=== PATIENT | female | born 1990 | race Caucasian/White ===

== ENCOUNTER → 2018-06-02 13:51 | Outpatient (CLI) | payer MEDICAID, OTHER, SELFPAY | PROVIDERS: Visit Provider Physician Assistant | DX: J02.9 Acute pharyngitis, unspecified (principal) | CPT/HCPCS: 87070 ==

== ENCOUNTER → 2018-08-03 13:22 | Outpatient (CLI) | payer OTHER, MEDICAID, SELFPAY ==
[2018-08-03 13:56] LABS: Alanine Aminotransferase 21 IU/L (9-52); Albumin 4.7 g/dL (3.5-5.0); Albumin Globulin Ratio 1.6 (1.0-2.8); Alkaline Phosphatase 42 U/L (38-126); Aspartate Aminotransferase 22 IU/L (14-36); Bilirubin Total 0.9 mg/dL (0.2-1.3); Bilirubin Unconjugated 0.8 mg/dL (0.0-1.1); HEMOLYSIS < 15 (0-50); Total Protein 7.7 g/dL (6.3-8.2)
[2018-08-03 16:45] LABS: HIV 1 and 2 Antibody NEGATIVE (NEGATIVE)
[2018-08-03 20:40] LABS: Urine N gonorrhoeae NOT DETECTED
[2018-08-03 20:50] LABS: Urine Chlamydia NOT DETECTED
[2018-08-07 20:31] LABS: Rapid Plasma Reagin NON-REACTIVE
== END ==
PROVIDERS: Visit Provider Physician Assistant
DX: A64 Unspecified sexually transmitted disease (principal)
CPT/HCPCS: 36415; 80076; 86592; 86703; 87491; 87591

== ENCOUNTER → 2018-09-14 15:02 | Outpatient (CLI) | payer OTHER, MEDICAID, SELFPAY | PROVIDERS: Visit Provider Physician Assistant | DX: J02.9 Acute pharyngitis, unspecified (principal) | CPT/HCPCS: 87070 ==

== ENCOUNTER → 2018-09-18 17:50 | Outpatient (CLI) | payer OTHER, MEDICAID, SELFPAY ==
[2018-09-23 10:49] LABS: C.trachomatis RNA NOT DETECTED
[2018-09-23 10:50] LABS: N.gonorrhoeae RNA NOT DETECTED
== END ==
PROVIDERS: Visit Provider Family Medicine
DX: Z11.3 Encounter for screening for infections with a predominantly sexual mode of transmission (principal)
CPT/HCPCS: 87491; 87591

== ENCOUNTER → 2018-12-04 11:28 | Outpatient (CLI) | payer OTHER, MEDICAID, SELFPAY ==
[2018-12-04 12:53] LABS: Add Manual Diff / Slide Review NO; Basophils Absolute Auto 0 /uL (0-100); Basophils Percent Auto 0.5 % (0-2); Eosinophils Absolute Auto 100 /uL (0-450); Eosinophils Percent Auto 1.1 % (2-4); Hematocrit 40.4 % (36-46); Hemoglobin 13.4 g/dL (12.0-16.0); Lymphocytes Absolute Auto 1400 /uL (1100-4500); Mean Corpuscular HGB Conc 33.1 % (30-36); Mean Corpuscular Hemoglobin 31.7 PG (26-34); Mean Corpuscular Volume 95.8 fL (80-100); Monocytes Absolute Auto 400 /uL (0-900); Monocytes Percent Auto 5.2 % (3-14); Neutrophils Absolute Auto 5000 /uL (1500-7000); Neutrophils Percent Auto 73.2 % (50-75); Platelet Count 197 X10^3/uL (150-400); Red Blood Cell Count 4.22 X10^6/uL (4.0-5.2); Red Cell Distribution Width 13.8 % (11.6-14.8); White Blood Cell Count 6.8 X10^3/uL (4.5-11.0)
[2018-12-04 13:32] LABS: Alanine Aminotransferase 23 IU/L (9-52); Albumin 4.4 g/dL (3.5-5.0); Albumin Globulin Ratio 1.5 (1.0-2.8); Alkaline Phosphatase 40 U/L (38-126); Aspartate Aminotransferase 19 IU/L (14-36); Bilirubin Total 0.7 mg/dL (0.2-1.3); Blood Urea Nitrogen 14 mg/dL (7-17); Calcium 9.2 mg/dL (8.4-10.2); Carbon Dioxide 26 mmol/L (22-32); Chloride 106 mmol/L (98-107); Cholesterol 133 mg/dL (140-199); Estimated Glomerular Filt Rate > 60.0 mL/min (>60); Glucose 64 mg/dL (70-100); HDL Cholesterol 45 mg/dL (40-60); HEMOLYSIS < 15 (0-50); LDL Cholesterol Calculated 69 mg/dL (<100); Potassium 4.1 mmol/L (3.4-5.1); Sodium 142 mmol/L (137-145); Total Protein 7.4 g/dL (6.3-8.2); Triglycerides 97 mg/dL (35-150)
[2018-12-04 13:42] LABS: Free T3, Triiodothyronine Free 2.85 pg/mL (2.77-5.27); Free T4, Direct Thyroxine 1.37 ng/dL (0.78-2.19)
[2018-12-04 13:55] LABS: Thyroid Stimulating Hormone 0.24 uIU/mL (0.47-4.68)
== END ==
PROVIDERS: Visit Provider Family Medicine
DX: E03.9 Hypothyroidism, unspecified (principal); Z51.81 Encounter for therapeutic drug level monitoring; Z13.220 Encounter for screening for lipoid disorders
CPT/HCPCS: 36415; 80053; 80061; 84439; 84443; 84481; 85025

== ENCOUNTER → 2019-01-05 16:49 | Outpatient (CLI) | payer OTHER, MEDICAID, SELFPAY | PROVIDERS: Visit Provider Family Medicine | DX: N89.8 Other specified noninflammatory disorders of vagina (principal) | CPT/HCPCS: 87070; 87205; 87491; 87591 ==

== ENCOUNTER → 2019-01-07 12:41 | Outpatient (CLI) | payer OTHER, MEDICAID, SELFPAY | PROVIDERS: Visit Provider Physician Assistant | DX: J02.9 Acute pharyngitis, unspecified (principal) | CPT/HCPCS: 87070 ==

== ENCOUNTER → 2019-03-09 12:19 | Outpatient (CLI) | payer OTHER, MEDICAID, SELFPAY ==
[2019-03-09 13:59] LABS: Thyroid Stimulating Hormone 2.08 uIU/mL (0.47-4.68)
== END ==
PROVIDERS: PCP Family Medicine; Visit Provider Physician Assistant
DX: E03.9 Hypothyroidism, unspecified (principal)
CPT/HCPCS: 36415; 84443

== ENCOUNTER → 2019-06-22 12:14 | Outpatient (CLI) | payer OTHER, MEDICAID, SELFPAY ==
[2019-06-22 13:34] LABS: Free T3, Triiodothyronine Free 3.36 pg/mL (2.77-5.27)
[2019-06-22 13:47] LABS: Thyroid Stimulating Hormone 3.19 uIU/mL (0.47-4.68)
== END ==
PROVIDERS: PCP Family Medicine; Visit Provider Family Medicine
DX: E03.9 Hypothyroidism, unspecified (principal)
CPT/HCPCS: 36415; 84439; 84443; 84481

== ENCOUNTER → 2019-08-05 06:56 | Outpatient (CLI) | payer OTHER, MEDICAID, SELFPAY ==
--- NOTE | 2019-08-05 06:58 | DI.ECHO.S_ITS ---
[facility]---------+ [facility] +---------+ : : [address] [place] : : : : [id number] : : : : Phone: [phone]+ Echocardiogram Report + + :Name: RONNI BUCHANAN Study Date: 08/05/2019 Height: 64 in : :[facility] Weight: 135 lb: : Gender: Female BSA: 1.7 m2 : :: 1990 Age: 28 yrs BP: 94/60 mmHg: :Reason For Study: Mitral Valve- Prolapse, palpitations : :Ordering Physician: Ora Salvador Performed By: Akua Witt : :Referring: ORA SALVADOR : + + Interpretation Summary 1) Normal left ventricular size, thickness, wall motion, and systolic function (EF 60-65%). 2) Normal right ventricular size and function. 3) No valvular abnormalities present. 4) No prior Echo available for comparison. Procedure: A two-dimensional transthoracic echocardiogram with color flow and Doppler was performed. The study quality was technically good. There is no prior echocardiogram noted for this patient. The patient was in normal sinus rhythm during the exam. Left Ventricle: The left ventricle is normal in size, wall thickness, and systolic function without any focal wall motion abnormalities. There is no ventricular septal defect visualized. A false chord is noted (normal variant). The ejection fraction is estimated to be 60-65%. Diastolic parameters suggest probable normal left ventricular diastolic function and normal filling pressures. Right Ventricle: The right ventricle is normal in size and function. Atria: The left atrium is mildly dilated. Right atrial size is normal. There is no Doppler evidence for an interatrial shunt. Mitral Valve: The mitral valve is normal in structure and function. There is no evidence of mitral valve prolapse. There is no mitral regurgitation noted. Aortic Valve: The aortic valve is normal in structure and function. No aortic regurgitation is present. Tricuspid Valve: The tricuspid valve is normal in structure and function. There is trace tricuspid regurgitation. The right ventricular systolic pressure is estimated to be at least 26 mmHg based on an estimated right atrial pressure of 8 mm Hg. Pulmonic Valve: The pulmonic valve is normal in structure and function. There is a trace or physiologic amount of pulmonic regurgitation. Great Vessels: The aortic root is normal size. The ascending aorta is normal in size. The aortic arch is normal in size. The pulmonary artery is normal size. The IVC is dilated (diameter is greater than 2.1 cm) yet it collapses greater than 50% with a sniff. This suggests a right atrial pressure of 8 mm Hg. Pericardium/ Pleura There is no pericardial effusion. MMode/2D Measurements & Calculations LVIDd: 4.9 cm LVOT diam: 2.2 cm LVIDs: 3.1 cm Ao root diam: 3.1 cm FS: 36.0 % asc Aorta Diam: 2.7 cm EPSS: 0.30 cm Ao Arch Diam (Prox Trans): 2.5 cm IVSd: 0.63 cm LVPWd: 0.73 cm LV cheung. diameter/BSA (cm/m^2): 3.0 LV sys. diameter/BSA (cm/m^2): 1.9 LA A2 area: 18.1 cm2 RA long axis: 4.2 cm LA A4 area: 19.0 cm2 RA area: 13.4 cm2 LA length (vol): 5.1 cm RA vol: 36.1 ml LA vol: 57.1 ml RA : 21.8 ml/m2 LA vol index: 34.5 ml/m2 IVC diam: 2.2 cm RVD1 (basal): 3.3 cm RVD2 (mid): 2.5 cm TAPSE: 2.4 cm Doppler Measurements & Calculations Ao V2 max: 114.4 cm/sec LVOT Max Kory: 96.3 cm/sec Ao V2 mean: 85.1 cm/sec LV V1 max P.7 mmHg Ao max P.2 mmHg LV V1 VTI: 21.6 cm Ao mean P.1 mmHg BRISEIDA(I,D): 3.1 cm2 Ao V2 VTI: 26.4 cm BRISEIDA(V,D): 3.2 cm2 sev ratio: 0.82 BRISEIDA indexed to BSA (cm^2/m^2): 1.9 MV E max kory: 78.8 cm/sec TR max kory: 209.0 cm/sec MV A max kory: 39.8 cm/sec TR max P.5 mmHg MV E/A: 2.0 PA V2 max: 88.4 cm/sec Med Peak E' Kory: 14.2 cm/sec PA V2 mean: 57.1 cm/sec E/E' med: 5.6 PA mean P.5 mmHg Lat Peak E' Kory: 17.4 cm/sec PA Accel Time: 0.17 sec E/E' lat: 4.5 E/e' average: 5.0 MV dec time: 0.19 sec MV P1/2t: 55.7 msec MV P1/2t max kory: 78.9 cm/sec SV(LVOT): 81.8 ml MVA(P1/2t): 4.0 cm2 Reading Physician:05:24 PM
== END ==
PROVIDERS: PCP Family Medicine; Visit Provider Family Medicine
DX: I34.1 Nonrheumatic mitral (valve) prolapse (principal); R00.2 Palpitations
CPT/HCPCS: 93306

== ENCOUNTER → 2019-08-11 11:39 | Outpatient (CLI) | payer OTHER, MEDICAID, SELFPAY ==
[2019-08-11 13:05] LABS: Cholesterol 163 mg/dL (140-199); HDL Cholesterol 62 mg/dL (40-60); LDL Cholesterol Calculated 78 mg/dL (<100); Triglycerides 117 mg/dL (35-150)
== END ==
PROVIDERS: PCP Family Medicine; Visit Provider Internal Medicine Cardiovascular Disease
DX: Z00.00 Encounter for general adult medical examination without abnormal findings (principal)
CPT/HCPCS: 36415; 80061

== ENCOUNTER 2020-02-12 19:48 | Emergency (ER) | payer OTHER, MEDICAID, SELFPAY ==
[2020-02-12 19:50] VITALS: BP 133/72; PULSE 90; RESP 18; TEMP 36.6; O2SAT 100
--- NOTE | 2020-02-12 20:17 | DI.RAD.S_ITS ---
PROCEDURE: XR CHEST 2V INDICATIONS: rib pain, coughing for 4 weeks TECHNIQUE: 2 views of the chest were acquired. COMPARISON: None. FINDINGS: Surgical changes and devices: None. Lungs and pleura: Lungs are clear. No pleural effusions or pneumothorax. Mediastinum: Mediastinal contours are normal. Heart size is normal. Bones and chest wall: No suspicious bony abnormalities. Soft tissues appear unremarkable. IMPRESSION: No acute cardiopulmonary disease process. Dictated by: Sallie Salas MD, PhD on 02/12/2020 at 20:43 Approved by: Sallie Salas MD, PhD on 02/12/2020 at 20:44
[2020-02-12] MEDS: ACETAMINOPHEN 325 MG TABLET 650 MG PO (20:29)
[2020-02-12] MEDS: IBUPROFEN 400 MG TABLET PO (20:31)
--- NOTE | 2020-02-12 21:20 | ED_ITS ---
HPI - URI/Sore Throat <TRAVIS PonceP - Last Filed: 02/12/20 21:33> General Chief Complaint: Upper Respiratory Symptoms Stated Complaint: coughing x4 wks, ribs/ chest pain Time Seen by Provider: 02/12/20 19:56 Source: patient Mode of arrival: Ambulatory Limitations: no limitations History of Present Illness HPI Narrative: This is a 29-year-old female, nonsmoker, who presents to ED with mid chest/rib pain radiating to left lower and side ribs. Patient reports she has been coughing for last 4 weeks. She denies fever but subjective chills. Patient reports it use to be nonproductive dry cough but now especially in the morning she has productive cough with greenish mucus. Patient denies dyspnea, rash, nausea or vomiting. Patient reports pain worse with certain movements of of her arms and bending forward. Patient denies diarrhea, sore throat, facial sinus pain. Patient has history of hypothyroidism otherwise she is healthy. Patient denies known exposure to people with cardona virus, recent travel. Patient reports questionable history of mitral valve prolapse which has been cleared by echocardiogram in 2019. Related Data Previous Rx's Medication Instructions Recorded levothyroxine 75 mcg tablet 75 mcg PO DAILY #90 tab 10/21/19 benzonatate [Tessalon Perles] 100 mg PO BID-TID PRN #10 cap 02/12/20 prednisone 20 mg PO DAILY 5 Days #5 tab 02/12/20 Allergies Allergy/AdvReac Type Severity Reaction Status Date / Time cefaclor [From [facility]] Allergy Unknown Verified 02/12/20 20:07 Review of Systems <JAMILA Ponce - Last Filed: 02/12/20 21:33> Review of Systems Narrative: General: Denies fever, (+) chills, fatigue, malaise, sweats. HEENT: Denies sinus pain, ear pain, sore throat, difficulty swallowing, dizziness. Respiratory: Denies dyspnea, (+) cough, wheezing, hemoptysis, sputum. Cardiovascular: Denies (+) mid chest and rib pain, palpitations, orthopnea, edema, calf pain. Gastrointestinal: Denies nausea, vomiting, abdominal pain, diarrhea, constipation, melena. : Denies dysuria, frequency, incontinence, hematuria, urinary retention. Musculoskeletal: Denies weakness, joint pain or bony pain. Skin: Denies rash, skin lesions, or other. Neurologic: Denies weakness, headache, numbness, change in speech, confusion, seizures, incoordination. Psychiatric: No concerning psychosocial issues. 12-point review of systems is negative except for those stated above. Patient History <JAMILA Ponce - Last Filed: 02/12/20 21:33> Family History Father No problems noted. Mother No problems noted. Sister No problems noted. Sister No problems noted. Social History Smoking Status: Never smoker quit status: not considering quitting second hand exposure: Yes alcohol intake: current substance use type: marijuana Smoking Status: Never smoker alcohol intake frequency: 0-2 drinks per day Substance Use Type: marijuana Exam <TRAVIS PonceP - Last Filed: 02/12/20 21:33> Narrative Exam Narrative: GEN: Alert, oriented x 3, well appearing and nourished, and in no acute distress. Head: Normal cephalic, atraumatic. No scalp or temporal tenderness, palpable mass or rash. EYES: Pupils are equal, round, and reactive to light and accommodation. Extraocular muscles are intact bilaterally. There is no subconjunctival hemorrhage, exudate and sclera non-icteric. ENT: Bilateral auditory canals and tympanic membranes clear. Hearing grossly intact. Nose without bleeding, purulent discharge or deviation. Facial sinuses nontender to palpate. Mucous membrane moist, no mucosal lesion. Throat without erythema, tonsillar hypertrophy or exudate. Uvula in midline, airway patent. Neck: Trachea in midline. No JVD, non-tender without lymphadenopathy. No masses or thyroid megaly. Supple, non-tender and no meningeal signs. CARDIAC: Normal regular rate and rhythm without murmurs, gallops, or rubs. No chest wall tenderness. No peripheral edema, cyanosis or pallor. Capillary refill is less than 2 seconds. RESPIRATORY: Lungs are clear to auscultate bilaterally. Occasional cough without wheezes, rales, or rhonchi. No stridor, respiratory distress, increase work of breathing, or accessary muscle used. ABD: Abdomen soft, nontender and non-distended. No guarding or rebound tenderness to palpate. Bowel sounds are normal in all 4 quadrants. There is no palpable masses or organomegaly. EXT: Full painless ROM of all extremities with no loss of sensation, strength, effusion or edema. SKIN: Warm, dry, normal color for patient. No erythema, lesions or rash over visible areas. BACK: Nontender without deformity or crepitance. No flank tenderness. NEUROLOGICAL: Alert and oriented to place, time and person. Sensation and motor function intact bilaterally. No facial droops, dysphasia. PSYCHIATRIC: Good judgement and reason, without hallucinations, abnormal affect or abnormal behaviors during the examination. Initial Vital Signs Initial Vital Signs: Vital Signs Temperature 97.9 F 02/12/20 19:50 Pulse Rate 90 02/12/20 19:50 Respiratory Rate 18 02/12/20 19:50 Blood Pressure 133/72 02/12/20 19:50 Pulse Oximetry 100 02/12/20 19:50 <Mehdi Carballo DO - Last Filed: 02/12/20 23:27> Initial Vital Signs Initial Vital Signs: Vital Signs Temperature 97.9 F 02/12/20 19:50 Pulse Rate 90 02/12/20 19:50 Respiratory Rate 18 02/12/20 19:50 Blood Pressure 133/72 02/12/20 19:50 Pulse Oximetry 100 02/12/20 19:50 Scores <JAMILA Ponce - Last Filed: 02/12/20 21:33> GCS Kat coma scale eye opening: Spontaneous [place] coma scale verbal response: Orientated [place] coma scale motor response: Obey commands Kat coma scale total score: 15 Course <JAMILA Ponce - Last Filed: 02/12/20 21:33> Orders Ordered: ED Orders 02/12/20 20:17 XR chest 2V Stat Discontinued Medications Acetaminophen (Tylenol) 650 mg PO NOW ONE Stop: 02/12/20 20:18 Last Admin: 02/12/20 20:29 Dose: 650 mg Documented by: IVY Ibuprofen (Advil) 400 mg PO NOW ONE Stop: 02/12/20 20:18 Last Admin: 02/12/20 20:31 Dose: 400 mg Documented by: IVY Vital Signs Vital signs: Vital Signs - 8 hr 02/12/20 19:50 02/12/20 21:34 Temperature 97.9 F Pulse Rate 90 88 Respiratory Rate 18 12 Blood Pressure 133/72 132/86 Pulse Oximetry 100 100 <[address] Last Filed: 02/12/20 23:27> Orders Ordered: ED Orders 02/12/20 20:17 XR chest 2V Stat Discontinued Medications Acetaminophen (Tylenol) 650 mg PO NOW ONE Stop: 02/12/20 20:18 Last Admin: 02/12/20 20:29 Dose: 650 mg Documented by: IVY Ibuprofen (Advil) 400 mg PO NOW ONE Stop: 02/12/20 20:18 Last Admin: 02/12/20 20:31 Dose: 400 mg Documented by: IVY Vital Signs Vital signs: Vital Signs - 8 hr 02/12/20 19:50 02/12/20 21:34 Temperature 97.9 F Pulse Rate 90 88 Respiratory Rate 18 12 Blood Pressure 133/72 132/86 Pulse Oximetry 100 100 MDM - URI/Sore Throat <JAMILA Ponce - Last Filed: 02/12/20 21:33> Differential Diagnosis Differential diagnosis: Likely upper respiratory infection, bronchitis and other (Costal chondritis, pneumonia) Medical Records Attestation: I reviewed the patient's medical records. Imaging Data Chest x-ray: My Impression: Jo-Ann Tobar 29 F 1990 [place] [address] XRay Report Signed Patient: Jo-Ann Tobar DMR#: [id number] : 1990Acct:[id number] Age/Sex: 29 FDate of Service: 02/12/20 Loc: ED Accession Number: [id number] Procedure: XR chest 2V Ordering Provider: Jeremy Enriquez PROCEDURE: XR CHEST 2V INDICATIONS: rib pain, coughing for 4 weeks TECHNIQUE: 2 views of the chest were acquired. COMPARISON: None. FINDINGS: Surgical changes and devices: None. Lungs and pleura: Lungs are clear. No pleural effusions or pneumothorax. Mediastinum: Mediastinal contours are normal. Heart size is normal. Bones and chest wall: No suspicious bony abnormalities. Soft tissues appear unremarkable. IMPRESSION: No acute cardiopulmonary disease process. Dictated by: Sallie Salas MD, PhD on 02/12/2020 at 20:43 Approved by: Sallie Salas MD, PhD on 02/12/2020 at 20:44 MDM Narrative Medical decision making narrative: This is a 29-year-old female who presents to ED with 4 week duration of nonproductive cough which changed to productive coughs in the morning recently with mid chest discomfort radiating to left lower and lateral ribs which increases with movement and bending forward. Patient's lung sounds are clear to auscultate in all lobes. Patient's vital signs stable with 100% O2 sat in room air. Patient has been taking allergy medications daily. Chest x-ray obtained which does not indicate acute findings such as pneumonia, pleural effusion, rib fractures or dislocation, or pneumothorax. Patient was medicated with Tylenol and Motrin while in ED for discomfort. Considered pericarditis but patient does not have constitutional symptoms with movement of upper arms and bending forward. It is likely patient has costal chondritis with frequent coughing with [id number] Tylenol and or Motrin. Tessalon per has been ordered for coughing symptoms and prednisone to decrease inflammation and bronchitis. Return precautions were discussed with the patient and patient verbalized understanding and in agreement with treatment plan. Discharge Plan Departure Patient Disposition: Home Clinical Impression: Bronchitis, Costal chondritis Discharge Date/Time: 02/12/20 21:34 Instructions: DI for Acute Bronchitis, DI for Costochondritis Activity Restrictions/Additional Instructions: You have been diagnosed with [bronchitis and costal chondritis. Your medicated with Tylenol and Motrin while in ED for discomfort. Chest x-ray does not show acute findings such as pneumonia, pleural effusion or pneumothorax. You have no fever with stable vital signs and clear lung sounds.]. What to do: *Take your medications as directed. Please take [id number] Tylenol and or Motrin for discomfort or fever. Tylenol 650-1000 mg of to 3 to 4 times a day as needed for discomfort. Ibuprofen/Motrin 400 mg to 3 times a day with food. Prednisone has been ordered and take it once a day for next 5 days. You also can use Tessalon perles as needed for cough. Please hydrate yourself well and use good hand hygiene. You can continue to take allergy medications daily. If you have upset stomach, you can picker and packer [id number] omeprazole for GI protect. Tessalon and prednisone have been transmitted to [facility]. *Follow up with your primary care provider in 2-3 days, call for an appointment. Let them know you were seen in the ED and that we asked you to be seen in follow up. *Return to ED if you have any new, worsening, or concerning symptoms, such as [difficulty breathing, increasing pain, fever, rash on her back, unable to tolerate fluids or any acute concerns]. Prescriptions: New prednisone 20 mg tablet 20 mg PO DAILY 5 Days Qty: 5 RF: 0 benzonatate [Tessalon Perles] 100 mg capsule 100 mg PO BID-TID PRN (Reason: cough) Qty: 10 RF: 0 No Action levothyroxine 75 mcg tablet 75 mcg PO DAILY Qty: 90 RF: 1 Referrals: Ora Singh DO [Primary Care Provider] - <Mehdi Carballo DO - Last Filed: 02/12/20 23:27> Cosign ED Attending Cosignature Attestation: I was immediately available in the department for consultation. This documentation has been reviewed and I agree with assessment and plan. Supervised by Mehdi Carballo DO
[2020-02-12 21:34] VITALS: BP 132/86; PULSE 88; RESP 12; O2SAT 100
== END 2020-02-12 21:34 | disposition home or self-care (01) ==
PROVIDERS: Emergency Provider Nurse Practitioner Family; PCP Family Medicine
DX: J40 Bronchitis, not specified as acute or chronic (principal); M94.0 Chondrocostal junction syndrome [Tietze]; R05 Cough
CPT/HCPCS: 71046; 99283

== ENCOUNTER 2020-03-19 12:36 | Emergency (ER) | payer OTHER, MEDICAID, SELFPAY ==
[2020-03-19 12:40] VITALS: BP 128/77; PULSE 92; RESP 18; TEMP 36.4; O2SAT 100
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
== END 2020-03-19 13:46 | disposition home or self-care (01) ==
PROVIDERS: Emergency Provider Nurse Practitioner Family; PCP Family Medicine
DX: S80.11XA Contusion of right lower leg, initial encounter (principal); H92.02 Otalgia, left ear; V89.0XXA Person injured in unspecified motor-vehicle accident, nontraffic, initial encounter
CPT/HCPCS: 73590; 99281; 99283

== ENCOUNTER → 2020-04-22 09:59 | Outpatient (CLI) | payer OTHER, MEDICAID, SELFPAY ==
[2020-04-22 11:08] LABS: Add Manual Diff / Slide Review NO; Basophils Absolute Auto 0 /uL (0-100); Basophils Percent Auto 0.5 % (0-2); Eosinophils Absolute Auto 100 /uL (0-450); Eosinophils Percent Auto 1.9 % (2-4); Hematocrit 39.2 % (36-46); Hemoglobin 13.3 g/dL (12.0-16.0); Lymphocytes Absolute Auto 1400 /uL (1100-4500); Lymphocytes Percent Auto 25.8 % (25-40); Mean Corpuscular Hemoglobin 32.4 PG (26-34); Mean Corpuscular Volume 95.4 fL (80-100); Monocytes Absolute Auto 400 /uL (0-900); Monocytes Percent Auto 7.6 % (3-14); Neutrophils Absolute Auto 3400 /uL (1500-7000); Neutrophils Percent Auto 64.2 % (50-75); Platelet Count 182 X10^3/uL (150-400); Red Blood Cell Count 4.11 X10^6/uL (4.0-5.2); Red Cell Distribution Width 14.1 % (11.6-14.8); White Blood Cell Count 5.3 X10^3/uL (4.5-11.0)
[2020-04-22 11:32] LABS: Alanine Aminotransferase 13 IU/L (<35); Albumin 4.4 g/dL (3.5-5.0); Albumin Globulin Ratio 1.5 (1.0-2.8); Alkaline Phosphatase 30 U/L (38-126); Aspartate Aminotransferase 21 IU/L (14-36); Blood Urea Nitrogen 13 mg/dL (7-17); Calcium 9.2 mg/dL (8.4-10.2); Carbon Dioxide 25 mmol/L (22-32); Chloride 107 mmol/L (98-107); Estimated Glomerular Filt Rate > 60.0 mL/min (>60); Glucose 94 mg/dL (70-100); HEMOLYSIS < 15 (0-50); Potassium 3.8 mmol/L (3.4-5.1); Sodium 139 mmol/L (137-145); Total Protein 7.4 g/dL (6.3-8.2)
[2020-04-22 11:49] LABS: Free T3, Triiodothyronine Free 3.43 pg/mL (2.77-5.27); Free T4, Direct Thyroxine 1.24 ng/dL (0.78-2.19)
[2020-04-22 12:02] LABS: Thyroid Stimulating Hormone 1.29 uIU/mL (0.47-4.68)
== END ==
PROVIDERS: PCP Nurse Practitioner; Referring Provider Nurse Practitioner; Visit Provider Nurse Practitioner
DX: Z00.00 Encounter for general adult medical examination without abnormal findings (principal); Z79.899 Other long term (current) drug therapy; E03.9 Hypothyroidism, unspecified; F32.9 Major depressive disorder, single episode, unspecified; R10.9 Unspecified abdominal pain; R63.5 Abnormal weight gain
CPT/HCPCS: 36415; 80053; 84439; 84443; 84481; 85025

== ENCOUNTER → 2020-10-17 13:32 | Outpatient (CLI) | payer OTHER, MEDICAID, SELFPAY ==
[2020-10-17 14:02] LABS: COVID19 -Nasal RAPID Negative (Negative)
[2020-10-17 14:23] LABS: Influenza A - CEPHEID Flu A NEGATIVE (NEGATIVE); Influenza B - CEPHEID Flu B NEGATIVE (NEGATIVE)
== END ==
PROVIDERS: PCP Nurse Practitioner; Visit Provider Physician Assistant
DX: Z11.59 Encounter for screening for other viral diseases (principal)
CPT/HCPCS: 87502; 87635

== ENCOUNTER → 2021-02-14 07:49 | Outpatient (CLI) | payer OTHER, MEDICAID, SELFPAY ==
[2021-02-14 08:12] LABS: COVID19 -Nasal RAPID POSITIVE (Negative)
== END ==
PROVIDERS: PCP Nurse Practitioner; Visit Provider Student in an Organized Health Care Education/Training Program
DX: U07.1 COVID-19 (principal)
CPT/HCPCS: 87635

== ENCOUNTER → 2021-04-27 09:29 | Outpatient (CLI) | payer OTHER, MEDICAID, SELFPAY ==
[2021-04-27 10:08] LABS: Hematocrit 38.2 % (36-46); Hemoglobin 12.7 g/dL (12.0-16.0); Mean Corpuscular HGB Conc 33.2 % (30-36); Mean Corpuscular Hemoglobin 32.2 PG (26-34); Mean Corpuscular Volume 97.1 fL (80-100); Platelet Count 208 X10^3/uL (150-400); Red Blood Cell Count 3.94 X10^6/uL (4.0-5.2); Red Cell Distribution Width 13.8 % (11.6-14.8); White Blood Cell Count 6.1 X10^3/uL (4.5-11.0)
[2021-04-27 10:14] LABS: Alanine Aminotransferase 19 IU/L (<35); Albumin 4.2 g/dL (3.5-5.0); Albumin Globulin Ratio 1.4 (1.0-2.8); Alkaline Phosphatase 39 U/L (38-126); Aspartate Aminotransferase 24 IU/L (14-36); BUN Creatinine Ratio 24.1 (6-22); Bilirubin Total 0.4 mg/dL (0.2-1.3); Blood Urea Nitrogen 14 mg/dL (7-17); Calcium 9.2 mg/dL (8.4-10.2); Carbon Dioxide 27 mmol/L (22-32); Chloride 106 mmol/L (98-107); Estimated Glomerular Filt Rate > 60.0 mL/min (>60); Globulin 2.9 g/dL (1.7-4.1); Glucose 96 mg/dL (70-100); HEMOLYSIS < 15 (0-50); Potassium 3.7 mmol/L (3.4-5.1); Sodium 138 mmol/L (137-145); Total Protein 7.1 g/dL (6.3-8.2)
[2021-04-27 10:54] LABS: Thyroid Stimulating Hormone 1.28 uIU/mL (0.47-4.68)
== END ==
PROVIDERS: PCP Nurse Practitioner; Referring Provider Nurse Practitioner; Visit Provider Nurse Practitioner
DX: Z00.00 Encounter for general adult medical examination without abnormal findings (principal); Z79.899 Other long term (current) drug therapy; F33.1 Major depressive disorder, recurrent, moderate; E03.9 Hypothyroidism, unspecified
CPT/HCPCS: 36415; 80053; 84443; 85027

== ENCOUNTER → 2021-05-16 09:33 | Outpatient (CLI) | payer OTHER, MEDICAID, SELFPAY | PROVIDERS: PCP Nurse Practitioner; Visit Provider Nurse Practitioner | DX: N89.8 Other specified noninflammatory disorders of vagina (principal) | CPT/HCPCS: 87070; 87077; 87147; 87205 ==

== ENCOUNTER → 2021-05-28 13:14 | Outpatient (CLI) | payer OTHER, MEDICAID, SELFPAY ==
[2021-05-28 14:18] LABS: HCG Quantitative /Beta subunit 1184.9 mIU/mL
== END ==
PROVIDERS: PCP Nurse Practitioner; Referring Provider Nurse Practitioner; Visit Provider Nurse Practitioner
DX: Z32.01 Encounter for pregnancy test, result positive (principal)
CPT/HCPCS: 36415; 84702

== ENCOUNTER 2021-05-28 18:27 | Emergency (ER) | payer OTHER, MEDICAID, SELFPAY ==
[2021-05-28 18:46] VITALS: BP 121/80; PULSE 91; RESP 20; TEMP 36.7; O2SAT 100
--- NOTE | 2021-05-28 19:01 | DI.US.S_ITS ---
PROCEDURE: US OB <= 14 WEEKS FETUS INDICATIONS: POSITIVE AFTER PLAN B 05-08-21 OUTSIDE/PRIOR DATING DATA: Last menstrual period (LMP): 04/21/2021. LMP-based estimated date of delivery (NOVA): 01/26/2022. First dating scan (date and location): 05/28/2021. Estimated date of delivery (NOVA) from first dating scan: Estimated 01/28/2022 based on MGSD. TECHNIQUE: Real-time scanning was performed of the fetus and maternal pelvic organs, with image documentation. Endovaginal scanning was also performed to better visualize the fetus and maternal ovaries. COMPARISON: None. FINDINGS: Embryo: Mean gestational sac diameter 0.3 cm, estimated gestational age 5 weeks 0 days. No pole at this time. No yolk sac. Measurement variability in dating: +/- 4 weeks by LMP, +/- 7 days by mean sac diameter (use before 6 weeks gestation if crown-rump length not able to be measured), +/- 5 days by crown-rump length (up to 8 weeks 6 days gestation), +/- 7 days by crown-rump length (up to 13 weeks 6 days gestation). Maternal organs: Ovaries are within normal limits. Left corpus luteum. Small volume of free fluid in the pelvis. IMPRESSION: 1. Intrauterine gestational sac with no pole at this time. 2. Left corpus luteum measuring at 2.1 cm. Small volume of free fluid in the pelvis. Recommend short-term interval follow-up OB ultrasound and trending beta HCG. Dictated by: Matthew Hunter M.D. on 05/28/2021 at 21:26 Approved by: Matthew Hunter M.D. on 05/28/2021 at 21:30
[2021-05-28 20:53] VITALS: BP 130/82; PULSE 88; O2SAT 100
[2021-05-28 22:10] VITALS: BP 123/73; PULSE 79; RESP 14; O2SAT 99
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
== END 2021-05-28 22:29 | disposition home or self-care (01) ==
PROVIDERS: Emergency Provider Emergency Medicine; PCP Nurse Practitioner
DX: Z34.91 Encounter for supervision of normal pregnancy, unspecified, first trimester (principal); J02.9 Acute pharyngitis, unspecified; Z3A.01 Less than 8 weeks gestation of pregnancy; Z32.01 Encounter for pregnancy test, result positive
CPT/HCPCS: 36415; 76801; 76817; 81025; 84702; 87880; 99282; 99283

== ENCOUNTER 2021-06-19 12:57 | Emergency (ER) | payer OTHER, MEDICAID, SELFPAY ==
--- NOTE | 2021-06-19 13:06 | DI.US.S_ITS ---
PROCEDURE: US OB <= 14 WEEKS FETUS INDICATIONS: SPOTTING OUTSIDE/PRIOR DATING DATA: Last menstrual period (LMP): 04/21/2021. LMP-based estimated date of delivery (NOVA): 01/26/2022. First dating scan (date and location): 05/28/2021 at . Estimated date of delivery (NOVA) from first dating scan: 01/28/2022. TECHNIQUE: Real-time scanning was performed of the fetus and maternal pelvic organs, with image documentation. Endovaginal scanning was also performed to better visualize the fetus and maternal ovaries. COMPARISON: [facility], , OB <= 14 WEEKS FETUS, 05/28/2021, 21:08. FINDINGS: Embryo: There is a single living IUP with the estimated gestational age 6 weeks 2 days based on the crown-rump length. Based on the previous ultrasound (MGSD only), the estimated gestational age is 8 weeks 1 day. There is cardiac activity. A yolk sac is not visualized Heart rate: 65 BPM Measurement variability in dating: +/- 4 weeks by LMP, +/- 7 days by mean sac diameter (use before 6 weeks gestation if crown-rump length not able to be measured), +/- 5 days by crown-rump length (up to 8 weeks 6 days gestation), +/- 7 days by crown-rump length (up to 13 weeks 6 days gestation). Maternal organs: Ovaries are grossly normal. IMPRESSION: 1. A single living intrauterine gestation with an estimated gestational age of 6 weeks 2 days, discordant with the estimated gestational age from the 1st ultrasound based on mean gestational sac dimension. There is heart tone with bradycardia ( heart rate 65 BPM). A yolk sac is not visualized. Please correlate with quantitative serum beta HCG. Dictated by: Heidi Brown M.D. on 06/19/2021 at 14:49 Approved by: Heidi Brown M.D. on 06/19/2021 at 14:58
[2021-06-19 13:15] VITALS: BP 122/65; PULSE 76; RESP 18; TEMP 36.9; O2SAT 99
[2021-06-19 13:57] LABS: Add Manual Diff / Slide Review NO; Basophils Absolute Auto 0 /uL (0-100); Basophils Percent Auto 0.4 % (0-2); Eosinophils Absolute Auto 100 /uL (0-450); Eosinophils Percent Auto 0.7 % (2-4); Hematocrit 39.6 % (36-46); Hemoglobin 13.4 g/dL (12.0-16.0); Lymphocytes Absolute Auto 1500 /uL (1100-4500); Lymphocytes Percent Auto 16.4 % (25-40); Mean Corpuscular HGB Conc 33.8 % (30-36); Mean Corpuscular Hemoglobin 32.1 PG (26-34); Monocytes Absolute Auto 500 /uL (0-900); Monocytes Percent Auto 5.5 % (3-14); Neutrophils Absolute Auto 6900 /uL (1500-7000); Platelet Count 205 X10^3/uL (150-400); Red Blood Cell Count 4.17 X10^6/uL (4.0-5.2); Red Cell Distribution Width 13.5 % (11.6-14.8)
[2021-06-19 14:06] LABS: Alanine Aminotransferase 18 IU/L (<35); Albumin 4.7 g/dL (3.5-5.0); Albumin Globulin Ratio 1.6 (1.0-2.8); Alkaline Phosphatase 43 U/L (38-126); Aspartate Aminotransferase 23 IU/L (14-36); BUN Creatinine Ratio 19.6 (6-22); Bilirubin Total 0.6 mg/dL (0.2-1.3); Blood Urea Nitrogen 9 mg/dL (7-17); Calcium 9.7 mg/dL (8.4-10.2); Carbon Dioxide 23 mmol/L (22-32); Chloride 107 mmol/L (98-107); Estimated Glomerular Filt Rate > 60.0 mL/min (>60); Glucose 102 mg/dL (70-100); HEMOLYSIS < 15 (0-50); Potassium 3.3 mmol/L (3.4-5.1); Sodium 141 mmol/L (137-145); Total Protein 7.7 g/dL (6.3-8.2)
[2021-06-19 14:47] LABS: HCG Quantitative /Beta subunit 20552 mIU/mL
--- NOTE | 2021-06-19 15:18 | ED.PREGNANCY ---
HPI - General Chief complaint: Urogenital-Female Stated complaint: 8 weeks and spotting Time Seen by Provider: 06/19/21 15:18 Source: patient Mode of arrival: Ambulatory Limitations: no limitations History of Present Illness HPI Narrative: This is a 30-year-old female who comes in at 8 weeks with vaginal bleeding and spotting. Patient has had some upper thoracic back discomfort but nothing really intra-abdominally. She denies any fevers. No nausea or vomiting. No other GI or urinary symptoms. She has not had any concerning discharge. She has had a slight increase in her normal. She has an appointment this Friday with Dr. Alaniz for OB follow-up. Patient states that she was unexpectedly and had ultrasound imaging here on her last ER visit that placed her at 5 weeks . Patient does note that she had a tummy tuck in January and still has some mild discomfort on palpation of her abdomen. Related Data Home Medications Medication Instructions Recorded Confirmed Probiotic PO 05/28/21 06/08/21 Vitamin B12 PO 05/28/21 06/08/21 collagen .ROUTE 06/08/21 06/08/21 prenat.vits,anjel,jmv-dwkg-oqnzi 1 tab PO DAILY 06/13/21 06/13/21 s-adenosylmethionine 400 mg 800 mg PO DAILY 06/13/21 06/13/21 tablet,delayed release (Marcus-E (Enteric Coated)) Previous Rx's Medication Instructions Recorded levothyroxine 75 mcg tablet 75 mcg .ROUTE .COMPLEX #90 tab 06/13/21 Allergies Allergy/AdvReac Type Severity Reaction Status Date / Time cefaclor [From [facility]] Allergy Unknown Swelling Verified 06/13/21 12:13 all over Review of Systems Review of Systems ROS Unobtainable: All systems reviewed & are unremarkable except as noted in HPI and below Exam Narrative Exam Narrative: GENERAL: Alert and oriented x three, female in mild distress. Patient is tearful on exam. HEENT: Head normocephalic, atraumatic, EOMI, pupils reactive, face symmetric, moist mucous membranes NECK: Supple, full range of motion CARDIOVASCULAR: Regular rate and rhythm without murmurs, rubs or gallops. RESPIRATORY: Breath sounds equal bilaterally, no wheezes rales or rhonchi. ABDOMEN: Soft, nontender. Normoactive bowel sounds all 4 quadrants. No guarding or rebound, rigidity, no mass : No CVA tenderness EXTREMITIES: Normal range of motion, no clubbing or edema. Neurovascularly intact NEUROLOGICAL: Cranial nerves II through XII grossly intact. Moving all extremities SKIN: Warm, dry, no petechiae, no rashes or lesions. Initial Vital Signs Initial Vital Signs: Vital Signs Temperature 98.4 F 06/19/21 13:15 Pulse Rate 76 06/19/21 13:15 Respiratory Rate 18 06/19/21 13:15 Blood Pressure 122/65 06/19/21 13:15 Pulse Oximetry 99 06/19/21 13:15 Course Orders Ordered: ED Orders 06/19/21 13:06 US OB <= 14 weeks fetus Stat 06/19/21 13:46 ABO RH Type Stat Complete Blood Count AUTO DIFF Stat Comprehensive Metabolic Panel Stat HCG Quantitative /Beta subunit Stat Vital Signs Vital signs: Vital Signs - 8 hr 06/19/21 13:15 06/19/21 15:37 Temperature 98.4 F Pulse Rate 76 78 Respiratory Rate 18 Blood Pressure 122/65 122/88 Pulse Oximetry 99 99 MDM - OB/Uterine Contractions Lab Data Result diagrams: 06/19/21 13:46 06/19/21 13:46 Labs: Lab Results 06/19/21 06/19/21 06/19/21 Range/Units 13:46 13:46 13:46 WBC 9.0 (4.5-11.0) X10^3/uL RBC 4.17 (4.0-5.2) X10^6/uL Hgb 13.4 (12.0-16.0) g/dL Hct 39.6 (36-46) % MCV 95.0 (80-100) fL MCH 32.1 (26-34) PG MCHC 33.8 (30-36) % RDW 13.5 (11.6-14.8) % Plt Count 205 (150-400) X10^3/uL Neut % (Auto) 77.0 H (50-75) % Lymph % (Auto) 16.4 L (25-40) % [place] % (Auto) 5.5 (3-14) % Eos % (Auto) 0.7 L (2-4) % Baso % (Auto) 0.4 (0-2) % Neut # (Auto) 6900 (9015-9718) /uL Lymph # (Auto) 1500 (6932-0441) /uL [place] # (Auto) 500 (0-900) /uL Eos # (Auto) 100 (0-450) /uL Baso # (Auto) 0 (0-100) /uL Sodium 141 (137-145) mmol/L Potassium 3.3 L (3.4-5.1) mmol/L Chloride 107 (98-107) mmol/L Carbon Dioxide 23 (22-32) mmol/L BUN 9 (7-17) mg/dL Creatinine 0.46 L (0.52-1.04) mg/dL Estimated GFR > 60.0 (>60) mL/min BUN/Creatinine Ratio 19.6 (6-22) Glucose 102 H (70-100) mg/dL Calcium 9.7 (8.4-10.2) mg/dL Total Bilirubin 0.6 (0.2-1.3) mg/dL AST 23 (14-36) IU/L ALT 18 (<35) IU/L Alkaline Phosphatase 43 (38-126) U/L Total Protein 7.7 (6.3-8.2) g/dL Albumin 4.7 (3.5-5.0) g/dL Globulin 3.0 (1.7-4.1) g/dL Albumin/Globulin Ratio 1.6 (1.0-2.8) HCG, Quant 33484 mIU/mL Blood Type O Positive Urine Dip Bedside Urine Glucose Negative Bedside Urine Bilirubin - Negative Bedside Urine Ketone - Negative Urine Specific [place] 1.005 Bedside Urine Occult Blood - Negative Bedside Urine pH 6.0 Bedside Urine Protein - Negative Bedside Urine Urobilinogen - Negative Bedside Urine Nitrite - Negative Bedside Urine Leukocytes - Negative Esterase Imaging Data US - OB: Radiologist's Impression: [address] [id number] ReportSigned Patient: Jo-Ann Tobar DMR#: [id number]: 1990Acct:[id number]/Sex: te of Service: 06/19/21Loc: EDAccession Number: [id number] Procedure: US OB <= 14 weeks fetus Ordering Provider: Treasure Blankenship D.O. PROCEDURE: US OB <= 14 WEEKS FETUS INDICATIONS: SPOTTING OUTSIDE/PRIOR DATING DATA: Last menstrual period (LMP): 04/21/2021. LMP-based estimated date of delivery (NOVA): 01/26/2022. First dating scan (date and location): 05/28/2021 at . Estimated date of delivery (NOVA) from first dating scan: 01/28/2022. TECHNIQUE: Real-time scanning was performed of the fetus and maternal pelvic organs, with image documentation. Endovaginal scanning was also performed to better visualize the fetus and maternal ovaries. COMPARISON: [facility], US, OB <= 14 WEEKS FETUS, 05/28/2021, 21:08. FINDINGS: Embryo: There is a single living IUP with the estimated gestational age 6 weeks 2 days based on the crown-rump length. Based on the previous ultrasound ([facility] only), the estimated gestational age is 8 weeks 1 day. There is cardiac activity. A yolk sac is not visualized Heart rate: 65 BPM Measurement variability in dating: +/- 4 weeks by LMP, +/- 7 days by mean sac diameter (use before 6 weeks gestation if crown-rump length not able to be measured), +/- 5 days by crown-rump length (up to 8 weeks 6 days gestation), +/- 7 days by crown-rump length (up to 13 weeks 6 days gestation). Maternal organs: Ovaries are grossly normal. IMPRESSION: 1. A single living intrauterine gestation with an estimated gestational age of 6 weeks 2 days, discordant with the estimated gestational age from the 1st ultrasound based on mean gestational sac dimension. There is heart tone with bradycardia ( heart rate 65 BPM). A yolk sac is not visualized. Please correlate with quantitative serum beta HCG. Dictated by: Heidi Brown M.D. on 06/19/2021 at 14:49 Approved by: Heidi Brown M.D. on 06/19/2021 at 14:58 MDM Narrative Medical decision making narrative: This is a 30-year-old female comes to the emergency department who by last ultrasound should be 8 weeks . She has had vaginal bleeding and spotting. She has had some upper thoracic discomfort but LS significant abdominal discomfort. Patient's labs do not show major abnormalities, her ultrasound is concerning the heart rate of 65 and patient's Um ultrasound is consistent with dates of 6 weeks when based on past ultrasound should be around 8 weeks. Discussed with patient plan for watchful waiting, we did discuss that there is a high potential for miscarriage particularly based on heart rate. Patient does have appointment on Friday for repeat ultrasound and follow up with her provider already scheduled. Return precautions were discussed. All questions answered. Discharge Plan Departure Patient Disposition: Home Clinical Impression: Vaginal bleeding during Instructions: DI for Threatened Activity Restrictions/Additional Instructions: Follow-up with Dr. Alaniz at your appointment on Friday for repeat US. Your imaging today shows a low heart rate, your is also measuring at 6 weeks but would be expected at 8 weeks based on your last ultrasound. You may take Tylenol up to a 1000 mg for pain. Do not use any tampons but you can use pads for any vaginal bleeding the continues. Please return for fevers, new or worsening abdominal pain, lightheadedness or passing out, rapidly worsening bleeding, going through more than 1 pad an hour or other new or concerning symptoms. Prescriptions: No Action collagen .Route RF: 0 Vitamin B12 PO RF: 0 Probiotic PO RF: 0 Marcus-E (Enteric Coated) 400 mg tablet,delayed release (DR/EC) 800 mg PO DAILY RF: 0 prenat.vits,anjel,lra-zrds-ksrbd Tablet 1 tab PO DAILY RF: 0 levothyroxine 75 mcg tablet 75 mcg .ROUTE .COMPLEX Qty: 90 RF: 3 Referrals: Nicole Valdez ARNP [Primary Care Provider] - Aimee Alaniz MD [Physician] -
[2021-06-19 15:37] VITALS: BP 122/88; PULSE 78; O2SAT 99
== END 2021-06-19 15:37 | disposition home or self-care (01) ==
PROVIDERS: Emergency Provider Emergency Medicine; PCP Nurse Practitioner
DX: O20.9 Hemorrhage in early pregnancy, unspecified (principal); M54.6 Pain in thoracic spine; Z3A.08 8 weeks gestation of pregnancy
CPT/HCPCS: 36415; 76801; 76817; 80053; 81003; 84702; 85025; 86900; 86901; 99283; 99284

== ENCOUNTER → 2021-06-26 10:29 | Outpatient (CLI) | payer OTHER, MEDICAID, SELFPAY ==
[2021-06-26 13:33] LABS: HCG Quantitative /Beta subunit 16986 mIU/mL
== END ==
PROVIDERS: PCP Nurse Practitioner; Referring Provider Family Medicine; Visit Provider Family Medicine
DX: O02.1 Missed abortion (principal)
CPT/HCPCS: 36415; 84702

== ENCOUNTER → 2021-07-04 11:04 | Outpatient (CLI) | payer OTHER, MEDICAID, SELFPAY ==
[2021-07-04 12:28] LABS: HCG Quantitative /Beta subunit 382.1 mIU/mL
== END ==
PROVIDERS: PCP Nurse Practitioner; Referring Provider Family Medicine; Visit Provider Family Medicine
DX: O02.1 Missed abortion (principal)
CPT/HCPCS: 36415; 84702

== ENCOUNTER → 2021-07-13 14:01 | Outpatient (CLI) | payer OTHER, MEDICAID, SELFPAY ==
[2021-07-13 16:39] LABS: HCG Quantitative /Beta subunit 76 mIU/mL
== END ==
PROVIDERS: PCP Nurse Practitioner; Referring Provider Family Medicine; Visit Provider Family Medicine
DX: O03.9 Complete or unspecified spontaneous abortion without complication (principal); Z34.81 Encounter for supervision of other normal pregnancy, first trimester; E03.9 Hypothyroidism, unspecified
CPT/HCPCS: 36415; 84702

== ENCOUNTER → 2021-09-27 12:15 | Outpatient (CLI) | payer OTHER, MEDICAID, SELFPAY ==
[2021-09-27 13:44] LABS: Thyroid Stimulating Hormone 0.916 uIU/mL (0.47-4.68)
== END ==
PROVIDERS: PCP Nurse Practitioner; Referring Provider Nurse Practitioner; Visit Provider Nurse Practitioner
DX: E03.9 Hypothyroidism, unspecified (principal); F33.1 Major depressive disorder, recurrent, moderate; F41.9 Anxiety disorder, unspecified; F41.0 Panic disorder [episodic paroxysmal anxiety]
CPT/HCPCS: 36415; 84443

== ENCOUNTER 2021-10-11 11:23 | Emergency (ER) | payer OTHER, MEDICAID, SELFPAY ==
[2021-10-11 11:32] VITALS: BP 134/77; PULSE 82; RESP 16; TEMP 37; O2SAT 100; BMI 21.2
--- NOTE | 2021-10-11 11:35 | DI.RAD.S_ITS ---
PROCEDURE: XR WRIST RT MIN 3V INDICATIONS: deformity post fall TECHNIQUE: 4 views of the wrist were acquired. COMPARISON: None. FINDINGS: Bones: No fractures or dislocations. No suspicious bony lesions. Scaphoid view: No navicular fractures are seen. Soft tissues: No suspicious soft tissue calcifications. IMPRESSION: No displaced fractures are seen. If there is snuffbox tenderness (or other clinical suspicion for a fracture not seen on these images) then a repeat examination would be recommended in 10 to 14 days, following splinting. Dictated by: Aaron Huitron M.D. on 10/11/2021 at 11:13 Approved by: Aaron Huitron M.D. on 10/11/2021 at 11:13
--- NOTE | 2021-10-11 12:45 | ED.UPPEXIN ---
HPI - Extremity Injury (Upper) General Chief Complaint: Extremity Injury, Upper Stated Complaint: Rt wrist injury Time Seen by Provider: 10/11/21 11:44 Source: patient Mode of arrival: Ambulatory Limitations: no limitations History of Present Illness HPI narrative: Otherwise healthy 31-year-old woman who fell yesterday landing on her right wrist she has some bruising over the ulnar styloid and increasing pain today, so comes in for further evaluation. She is neurovascularly intact. She describes no other injuries. She has had no recent fever, cough, chest pain, palpitations, headache, abdominal pain, nausea vomiting, diarrhea or dizziness. Related Data Home Medications Medication Instructions Recorded Confirmed Probiotic PO 05/28/21 10/10/21 Vitamin B12 PO 05/28/21 10/10/21 collagen .ROUTE 06/08/21 10/10/21 prenat.vits,anjel,eyg-xmbl-rgtin 1 tab PO DAILY 06/13/21 10/10/21 s-adenosylmethionine 400 mg 800 mg PO DAILY 06/13/21 10/10/21 tablet,delayed release (Marcus-E (Enteric Coated)) Previous Rx's Medication Instructions Recorded oxycodone 5 mg tablet 5 mg PO Q8H PRN #5 tab 06/26/21 ondansetron 4 mg disintegrating 4 mg PO Q8H PRN #14 tab 09/14/21 tablet bupropion HCl 300 mg 24 hr tablet, 300 mg PO QAM #90 tab 09/28/21 extended release levothyroxine 75 mcg tablet 75 mcg .ROUTE .COMPLEX #90 tab 09/28/21 propranolol 10 mg tablet 10 mg PO TID PRN #90 tab 10/10/21 Allergies Allergy/AdvReac Type Severity Reaction Status Date / Time cefaclor [From [facility]] Allergy Unknown Swelling Verified 06/13/21 12:13 all over Review of Systems Review of Systems Narrative: Remainder of complete review of systems is otherwise unremarkable except for that included in the HPI. Patient History Medical History Ankle fracture, right Anxiety Foot fracture, right Gestational diabetes mellitus (GDM) affecting second H/O pre-eclampsia Hypothyroidism Mitral valve prolapse Panic attacks Presence of intrauterine contraceptive device (IUD) (09/18/18) (spontaneous vaginal delivery) (~07/12/16) (spontaneous vaginal delivery) (~12/19/12) (spontaneous vaginal delivery) (~06/19/11) Surgical History H/O abdominoplasty (~01/2021) No history of previous surgery (~01/2021) [place] teeth extracted Family History Father Hypertension Altered cardiac tissue perfusion Skin cancer Mother Pre-eclampsia Toxemia in Skin cancer SLE (systemic lupus erythematosus related syndrome) Hemochromatosis Sister SLE (systemic lupus erythematosus related syndrome) Pre-eclampsia Sister Skin cancer Grandfather Heavy smoker Altered cardiac tissue perfusion Grandmother History of open heart surgery Cancer Heart valve replaced by transplant Stewart syndrome Grandfather MVA (motor vehicle accident) Grandmother Altered cardiac tissue perfusion CVA (cerebral vascular accident) Sister No problems noted. Family/Other History of open heart surgery Diabetes mellitus Family/Other Altered cardiac tissue perfusion Social History marital status: unmarried,single number of children: 3 household members: children lives independently: Yes housing: apartment pets and animals: Yes (X 1 Dog) education level: high school ([employer]) occupational status: employed current occupational exposures/hazards: Yes special angela needs: No Smoking Status: Never smoker quit status: not considering quitting (Marijuana use not during ) second hand exposure: Yes alcohol intake: former (pre- : after work every night ) substance use type: does not use and marijuana (Not during ) Smoking Status: Never smoker alcohol intake frequency: 0-2 drinks per day Substance Use Type: marijuana Exam Narrative Exam Narrative: General: Alert appropriate in no acute distress Respiratory: Able to speak in full sentences, no obvious respiratory distress Skin: No obvious rashes, warm and dry Neurologic: Grossly intact no obvious asymmetries or abnormalities Psych: appropriate insight and affect, cooperative Extremity: Right wrist has a contusion over the ulnar styloid. There is no snuffbox tenderness, she has full range of motion at the wrist, neurovascularly intact. No elbow or shoulder tenderness. Initial Vital Signs Initial Vital Signs: Vital Signs Temperature 98.6 F 10/11/21 11:32 Pulse Rate 82 10/11/21 11:32 Respiratory Rate 16 10/11/21 11:32 Blood Pressure 134/77 10/11/21 11:32 Pulse Oximetry 100 10/11/21 11:32 Procedures Orthopedic Splinting/Casting Right wrist Mckay wrap: Time of procedure: 12:49 Side: right Upper Extremity Injury Location: wrist Upper Extremity Immobilizer: Mckay wrap Post splinting neuro exam: intact Post splinting vascular exam: intact Placed by: Provider Course Orders Ordered: ED Orders 10/11/21 11:35 XR wrist RT min 3V Stat Vital Signs Vital signs: Vital Signs - 8 hr 10/11/21 11:32 Temperature 98.6 F Pulse Rate 82 Respiratory Rate 16 Blood Pressure 134/77 Pulse Oximetry 100 MDM - Extremity Injury (Upper) MDM Narrative Medical decision making narrative: 31-year-old young woman with a fall on her right wrist contusion over the ulnar styloid without any fractures. Mckay wrap is applied. Discussed conservative management with ice, ibuprofen and rest. She will follow-up with orthopedics if symptoms do not improve. She is safe for discharge Discharge Plan Departure Patient Disposition: Home Clinical Impression: Contusion of right wrist, initial encounter Instructions: DI for Wrist Sprain Activity Restrictions/Additional Instructions: Thank you for coming in today You did not break any bones in your wrist. Using 400 mg of ibuprofen (2 zhsa-bos-vahehga pills) and 1 Tylenol every 6 hours can be very helpful in controlling pain. Ice will also be helpful. Can use the Mckay wrap that we put on in the emergency department as long as it is comfortable. If you have worsening symptoms or develops new findings, please feel free to return to the ER Prescriptions: No Action collagen .Route 0RF Rx Instructions: with coffee Vitamin B12 PO 0RF Probiotic PO 0RF oxycodone 5 mg tablet 5 mg PO Q8H PRN (Reason: pain) Qty: 5 0RF levothyroxine 75 mcg tablet 75 mcg .ROUTE .COMPLEX Qty: 90 3RF Rx Instructions: 75 mcg; bupropion HCl 300 mg tablet extended release 24 hr 300 mg PO QAM Qty: 90 1RF Marcus-E (Enteric Coated) 400 mg tablet,delayed release (DR/EC) 800 mg PO DAILY 0RF prenat.vits,anjel,krt-suwh-pjzkd Tablet 1 tab PO DAILY 0RF ondansetron 4 mg tablet,disintegrating 4 mg PO Q8H PRN (Reason: nausea and vomiting) Qty: 14 0RF propranolol 10 mg tablet 10 mg PO TID PRN (Reason: anxiety or panic attacks) Qty: 90 1RF Rx Instructions: Take one tab up to 3x/day as needed for anxiety or panic Referrals: Nicole Valdez ARNP [Primary Care Provider] -
[2021-10-11 13:14] VITALS: BP 110/66; PULSE 72; RESP 16; O2SAT 100
== END 2021-10-11 13:15 | disposition home or self-care (01) ==
PROVIDERS: Emergency Provider Emergency Medicine; PCP Nurse Practitioner
DX: S63.591A Other specified sprain of right wrist, initial encounter (principal); S60.211A Contusion of right wrist, initial encounter; W18.30XA Fall on same level, unspecified, initial encounter
CPT/HCPCS: 73110; 99281; 99283

== ENCOUNTER → 2021-12-03 15:07 | Outpatient (CLI) | payer OTHER, MEDICAID, SELFPAY ==
[2021-12-03 17:03] LABS: COVID19 -Nasal RAPID Negative (Negative)
== END ==
PROVIDERS: PCP Nurse Practitioner; Referring Provider Nurse Practitioner Family; Visit Provider Nurse Practitioner Family
DX: Z20.822 Contact with and (suspected) exposure to COVID-19 (principal); J02.9 Acute pharyngitis, unspecified
CPT/HCPCS: 87070; 87635; 87880

== ENCOUNTER → 2021-12-07 10:52 | Outpatient (CLI) | payer OTHER, MEDICAID, SELFPAY ==
--- NOTE | 2021-12-07 10:54 | DI.US.S_ITS ---
PROCEDURE: US SOFT TISSUE HEAD AND NECK INDICATIONS: LUMP UNDER CHIN RIGHT OF MIDLINE TECHNIQUE: Real-time scanning was performed of the neck region of interest, with image documentation. COMPARISON: None. FINDINGS: 6 mm, hypoechoic solid mass within the subcutaneous soft tissues corresponding to the palpable abnormality. Doppler assessment demonstrates mild internal flow. IMPRESSION: Nonspecific soft tissue mass. Differential would include both benign and malignant etiologies. Consider dermatology consultation. Dictated by: Carlos WOO Interpreted: Ion Major MD on 12/07/2021 at 12:38 Transcribed by: ELANA on 12/07/2021 at 12:39 Approved by: Ion Major M.D. on 12/07/2021 at 13:12
== END ==
PROVIDERS: PCP Nurse Practitioner; Referring Provider Nurse Practitioner; Visit Provider Nurse Practitioner
DX: R22.1 Localized swelling, mass and lump, neck (principal)
CPT/HCPCS: 76536

== ENCOUNTER 2022-01-10 07:57 | Emergency (ER) | payer OTHER, MEDICAID, SELFPAY ==
[2022-01-10 08:16] VITALS: BP 127/70; PULSE 76; RESP 18; O2SAT 100; BMI 19.7
--- NOTE | 2022-01-10 08:28 | DI.RAD.S_ITS ---
PROCEDURE: XR WRIST RT MIN 3V INDICATIONS: Pain/injury TECHNIQUE: 3 views of the wrist were acquired. COMPARISON: None. FINDINGS: Bones: No fractures or dislocations. No suspicious bony lesions. Scaphoid view: Scaphoid is intact. Soft tissues: No suspicious soft tissue calcifications. IMPRESSION: No fracture. No osseous lesion. If symptoms and/or clinical suspicion for pathology persists, further assessment with repeat radiographs (7-10 days) or advanced imaging (e.g. CT, MRI or bone scan) should be considered. Dictated by: Sallie Salas MD, PhD on 01/10/2022 at 9:18 Approved by: Sallie Salas MD, PhD on 01/10/2022 at 9:22
--- NOTE | 2022-01-10 08:28 | DI.RAD.S_ITS ---
PROCEDURE: XR HAND RT MIN 3V INDICATIONS: Pain/injury TECHNIQUE: 3 views of the hand(s) acquired. COMPARISON: None. FINDINGS: Bones: No fractures or dislocations. Carpal bones are normally aligned. No suspicious bony lesions. Soft tissues: No suspicious soft tissue calcifications. IMPRESSION: No fracture. No osseous lesion. If symptoms and/or clinical suspicion for pathology persists, further assessment with repeat radiographs (7-10 days) or advanced imaging (e.g. CT, MRI or bone scan) should be considered. Dictated by: Sallie Salas MD, PhD on 01/10/2022 at 9:17 Approved by: Sallie Salas MD, PhD on 01/10/2022 at 9:17
--- NOTE | 2022-01-10 08:30 | ED_ITS ---
HPI - Extremity Injury (Upper) General Chief Complaint: Extremity Injury, Upper Stated Complaint: Fell and hurt right wrist Time Seen by Provider: 01/10/22 08:24 Source: patient Mode of arrival: Ambulatory History of Present Illness HPI narrative: Patient here for pain/injury to the right wrist. History of injury to the right wrist in the past. Seen here October 11, 2021 for right wrist injury as well. Denies a history of wrist fractures. Patient is right handed. 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 Patient states she was on [employer] board last night inside her home and fell and hurt her wrist. Denies any other injuries. LMP 1 week ago. Denies . Does not want test Related Data Home Medications Medication Instructions Recorded Confirmed Probiotic PO 05/28/21 10/10/21 Vitamin B12 PO 05/28/21 10/10/21 collagen .ROUTE 06/08/21 10/10/21 prenat.vits,anjel,evu-wbas-esmle 1 tab PO DAILY 06/13/21 10/10/21 s-adenosylmethionine 400 mg 800 mg PO DAILY 06/13/21 10/10/21 tablet,delayed release (Marcus-E (Enteric Coated)) Previous Rx's Medication Instructions Recorded oxycodone 5 mg tablet 5 mg PO Q8H PRN #5 tab 06/26/21 ondansetron 4 mg disintegrating 4 mg PO Q8H PRN #14 tab 09/14/21 tablet bupropion HCl 300 mg 24 hr tablet, 300 mg PO QAM #90 tab 09/28/21 extended release levothyroxine 75 mcg tablet 75 mcg .ROUTE .COMPLEX #90 tab 09/28/21 propranolol 10 mg tablet 10 mg PO TID PRN #90 tab 10/10/21 Allergies Allergy/AdvReac Type Severity Reaction Status Date / Time cefaclor [From [facility]] Allergy Unknown Swelling Verified 06/13/21 12:13 all over Review of Systems Review of Systems Narrative: GENERAL: Denies chills, fatigue, malaise, fever, sweats. HEENT: Denies sinus pain, ear pain, sore throat RESPIRATORY: Denies dyspnea, cough CARDIOVASCULAR: Denies chest pain, palpitations GASTROINTESTINAL: Denies nausea, vomiting, abdominal pain : Denies dysuria, frequency, hematuria MUSCULOSKELETAL: Positive for muscle or bony pain SKIN: Denies rash, skin lesions NEUROLOGIC: Denies weakness, numbness ROS Unobtainable: All systems reviewed & are unremarkable except as noted in HPI and below Patient History Medical History Ankle fracture, right Anxiety Foot fracture, right Gestational diabetes mellitus (GDM) affecting second H/O pre-eclampsia Hypothyroidism Mitral valve prolapse Panic attacks Presence of intrauterine contraceptive device (IUD) (09/18/18) (spontaneous vaginal delivery) (~07/12/16) (spontaneous vaginal delivery) (~12/19/12) (spontaneous vaginal delivery) (~06/19/11) Surgical History H/O abdominoplasty (~01/2021) No history of previous surgery (~01/2021) [place] teeth extracted Family History Father Hypertension Altered cardiac tissue perfusion Skin cancer Mother Pre-eclampsia Toxemia in Skin cancer SLE (systemic lupus erythematosus related syndrome) Hemochromatosis Sister SLE (systemic lupus erythematosus related syndrome) Pre-eclampsia Sister Skin cancer Grandfather Heavy smoker Altered cardiac tissue perfusion Grandmother History of open heart surgery Cancer Heart valve replaced by transplant Stewart syndrome Grandfather MVA (motor vehicle accident) Grandmother Altered cardiac tissue perfusion CVA (cerebral vascular accident) Sister No problems noted. Family/Other History of open heart surgery Diabetes mellitus Family/Other Altered cardiac tissue perfusion Social History marital status: unmarried,single number of children: 3 household members: children lives independently: Yes housing: apartment pets and animals: Yes (X 1 Dog) education level: high school ([employer]) occupational status: employed current occupational exposures/hazards: Yes special angela needs: No Smoking Status: Never smoker quit status: not considering quitting (Marijuana use not during ) second hand exposure: Yes alcohol intake: former (pre- : after work every night ) substance use type: does not use and marijuana (Not during ) Smoking Status: Never smoker alcohol intake frequency: 0-2 drinks per day Substance Use Type: marijuana Exam Narrative Exam Narrative: GENERAL: in no distress, not toxic not dyspneic HEAD: Normocephalic. EYES: Pupils equal round No scleral icterus. NECK: Trachea midline. EXTREMITIES: No gross deformities. Examination right upper extremity nontender shoulders elbow and fingers. There is edema and ecchymosis to the ulnar aspect of the right wrist. Limited range of motion of the wrist due to pain and swelling. Able to make strong barrel bung remover and dumper and bring thumb across the palm. Light touch intact to thumb and fingers. Strong radial pulse. Skin is intact. NEURO: AOx4. SKIN: Warm and dry PSYCH: Not anxious, is cooperative Initial Vital Signs Initial Vital Signs: Vital Signs Pulse Rate 76 01/10/22 08:16 Respiratory Rate 18 01/10/22 08:16 Blood Pressure 127/70 01/10/22 08:16 Pulse Oximetry 100 01/10/22 08:16 Procedures Orthopedic Splinting/Casting Injury #1: Time of procedure: 09:34 Side: right Upper Extremity Injury Location: wrist Upper Extremity Immobilizer: wrist splint Post splinting neuro exam: intact Post splinting vascular exam: intact Placed by: Nursing Course Course Course Narrative: No new issues during course of stay Orders Ordered: Discontinued Medications Acetaminophen (Acetaminophen 325 Mg Tablet) 975 mg PO NOW ONE Stop: 01/10/22 08:29 Last Admin: 01/10/22 08:47 Dose: 975 mg Documented by: NEFTALI Reevaluation(s) Reevaluation #1: Reviewed results with patient. Agrees with splint and follow-up with orthopedics. Work note provided. Pain is controlled. Return precautions reviewed Time: 09:31 Vital Signs Vital signs: Vital Signs - 8 hr 01/10/22 08:16 Pulse Rate 76 Respiratory Rate 18 Blood Pressure 127/70 Pulse Oximetry 100 MDM - Extremity Injury (Upper) Differential Diagnosis Differential diagnosis: Likely sprain and strain of wrist, fracture of wrist and fracture of hand Imaging Data Extremity x-ray #1: Radiologist's Impression: [address] [address] XRay Report Signed Patient: Jo-Ann Tobar MR#: [id number] : 1990 Acct:[id number] Age/Sex: 31 / F Date of Service: 01/10/22 Loc: ED Accession Number: [id number] ?? Procedure: XR wrist RT min 3V Ordering Provider: Juan Mejia MD PROCEDURE:? XR WRIST RT MIN 3V ? INDICATIONS: Pain/injury ? TECHNIQUE:? 3 views of the wrist were acquired.? ? COMPARISON:? None. ? FINDINGS:? ? Bones:? No fractures or dislocations.? No suspicious bony lesions.? ? Scaphoid view:? Scaphoid is intact. ? Soft tissues:? No suspicious soft tissue calcifications.? ? IMPRESSION:? No fracture. No osseous lesion. If symptoms and/or clinical suspicion for pathology persists, further assessment with repeat radiographs (7-10 days) or advanced imaging (e.g. CT, MRI or bone scan) should be considered. ? ? Dictated by: Sallie Salas MD, PhD on 01/10/2022 at 9:18 ? ? Approved by: Sallie Salas MD, PhD on 01/10/2022 at 9:22 ? Extremity x-ray #2: Radiologist's Impression: [address] [address] XRay Report Signed Patient: Jo-Ann Tobar MR#: [id number] : 1990 Acct:[id number] Age/Sex: 31 / F Date of Service: 01/10/22 Loc: ED Accession Number: [id number] ?? Procedure: XR hand RT min 3V Ordering Provider: Juan Mejia MD PROCEDURE:? XR HAND RT MIN 3V ? INDICATIONS:? Pain/injury ? TECHNIQUE:? 3 views of the hand(s) acquired.? ? COMPARISON:? None. ? FINDINGS:? ? Bones:? No fractures or dislocations.? Carpal bones are normally aligned.? No suspicious bony lesions.? ? Soft tissues:? No suspicious soft tissue calcifications.? ? ? IMPRESSION:? No fracture. No osseous lesion. If symptoms and/or clinical suspicion for pathology persists, further assessment with repeat radiographs (7-10 days) or advanced imaging (e.g. CT, MRI or bone scan) should be considered. ? ? Dictated by: Sallie Salas MD, PhD on 01/10/2022 at 9:17 ? ? Approved by: Sallie Salas MD, PhD on 01/10/2022 at 9:17 ? MDM Narrative Medical decision making narrative: Appropriate for discharge home. Exam and imaging reassuring. Return precautions reviewed patient. Work note provided. Follow-up provider given as well. Discharge Plan Departure Patient Disposition: Home Clinical Impression: Sprain and strain of wrist Instructions: DI for Wrist Sprain Activity Restrictions/Additional Instructions: Return if worse or for any questions or concerns. Use wrist splint until office time. Orthopedic office referral given to you. May continue ibuprofen or Tylenol for pain. Work note provided for you. Prescriptions: No Action collagen .Route 0RF Rx Instructions: with coffee Vitamin B12 PO 0RF Probiotic PO 0RF oxycodone 5 mg tablet 5 mg PO Q8H PRN (Reason: pain) Qty: 5 0RF levothyroxine 75 mcg tablet 75 mcg .ROUTE .COMPLEX Qty: 90 3RF Rx Instructions: 75 mcg; bupropion HCl 300 mg tablet extended release 24 hr 300 mg PO QAM Qty: 90 1RF Marcus-E (Enteric Coated) 400 mg tablet,delayed release (DR/EC) 800 mg PO DAILY 0RF prenat.vits,anjel,rhm-whgn-usyfs Tablet 1 tab PO DAILY 0RF ondansetron 4 mg tablet,disintegrating 4 mg PO Q8H PRN (Reason: nausea and vomiting) Qty: 14 0RF propranolol 10 mg tablet 10 mg PO TID PRN (Reason: anxiety or panic attacks) Qty: 90 1RF Rx Instructions: Take one tab up to 3x/day as needed for anxiety or panic Referrals: Nicole Valdez ARNP [Primary Care Provider] - Tonio Jaime MD [Physician] - Stand Alone Forms: Work Release Note
[2022-01-10] MEDS: ACETAMINOPHEN 325 MG TABLET 975 MG PO (08:47)
== END 2022-01-10 10:04 | disposition home or self-care (01) ==
PROVIDERS: Emergency Provider Emergency Medicine; PCP Nurse Practitioner
DX: S63.501A Unspecified sprain of right wrist, initial encounter (principal); S66.911A Strain of unspecified muscle, fascia and tendon at wrist and hand level, right hand, initial encounter; V00.848A Other accident with standing micro-mobility pedestrian conveyance, initial encounter; Y92.009 Unspecified place in unspecified non-institutional (private) residence as the place of occurrence of the external cause
CPT/HCPCS: 73110; 73130; 99283

== ENCOUNTER → 2022-03-08 13:21 | Outpatient (CLI) | payer OTHER, MEDICAID, SELFPAY | PROVIDERS: PCP Nurse Practitioner; Visit Provider Nurse Practitioner Family | DX: R30.0 Dysuria (principal) | CPT/HCPCS: 81002; 87086; 87210 ==

== ENCOUNTER → 2022-03-15 16:03 | Outpatient (CLI) | payer OTHER, MEDICAID, SELFPAY ==
[2022-03-15 19:08] LABS: Urine N gonorrhoeae NOT DETECTED
[2022-03-15 19:50] LABS: Urine Chlamydia NOT DETECTED
== END ==
PROVIDERS: PCP Nurse Practitioner; Visit Provider Physician Assistant
DX: N89.8 Other specified noninflammatory disorders of vagina (principal)
CPT/HCPCS: 87210; 87491; 87591

== ENCOUNTER 2022-06-06 14:06 | Emergency (ER) | payer OTHER, MEDICAID, SELFPAY ==
[2022-06-06 14:14] VITALS: BP 137/93; PULSE 87; RESP 18; TEMP 36.7; O2SAT 100; BMI 19.2
[2022-06-06 14:45] LABS: COVID19 -Nasal RAPID Negative (Negative)
--- NOTE | 2022-06-06 15:08 | DI.RAD.S_ITS ---
PROCEDURE: XR CHEST 1V INDICATIONS: sob TECHNIQUE: One view of the chest was acquired. COMPARISON: [facility], CR, XR CHEST 2V, 02/12/2020, 20:25. FINDINGS: Surgical changes and devices: None. Lungs and pleura: Lungs are clear. No pleural effusions or pneumothorax. Mediastinum: Mediastinal contours appear normal. Heart size is normal. Bones and chest wall: No suspicious bony lesions. Overlying soft tissues appear unremarkable. IMPRESSION: No acute cardiopulmonary disease. Dictated by: Monet Gamez M.D. on 06/06/2022 at 15:59 Approved by: Monet Gamez M.D. on 06/06/2022 at 15:59
[2022-06-06 15:12] LABS: Bacteria Urine None Seen; Culture Indicated Urine Cult Not Indicated; RBC Urine 0-1/HPF (0-5/HPF); Squamous Epithelial Cell Urine None Seen (0-5/HPF); WBC Urine 0-1/HPF (0-5/HPF)
--- NOTE | 2022-06-06 15:12 | ED_ITS ---
HPI - SOB/Dyspnea General Chief Complaint: Shortness of Breath/Dyspnea Stated Complaint: sob Time Seen by Provider: 06/06/22 15:08 Source: patient Mode of arrival: Ambulatory Limitations: no limitations History of Present Illness HPI Narrative: This is a 31-year-old female with history of longstanding anxiety, hypo thyroidism, mitral valve prolapse who presents for anxiety. Patient states she feels very short of breath and anxious. She is had symptoms for some time but states the last week has been significantly worse. She states that she is had some changes some conflict with family as well as a miscarriage in the past year and in the past several days changes in her personal relationship with her significant other. Patient states no fevers or chills. She describes palpitations. No active chest pain, she is felt lightheaded she is not had syncope but thought she might today. She has not had any nausea or vomiting. She is had she is had some diarrhea for the past day. No issues with black or b loody stools. She has had some dysuria since even her pressure at the end of her urinary stream, no frequency or hematuria. She saw her primary care today who put in for referral to Cardiology, had ordered labs and was adjusting her Wellbutrin. Patient has not started the new dose. Patient states no prior surgeries. She is allergic to cefaclor. She is been using a nicotine pen, she drinks weekly 1 or 2 times usually 3 white claws when she has this, she uses THC but denies any other illicit. She is a family history of cardiac issues with maternal grandparents, states her maternal grandmother had valve replacement x2, paternal grandmother had some sort of cardiac issue as well recently. She denies any sudden cardiac in parents or first-degree relatives. She has an older sister who has ?something wrong with her heart? she does not know exactly what but they only follow it she is not had any interventions for it. Related Data Home Medications Medication Instructions Recorded Confirmed Probiotic PO 05/28/21 03/12/22 Vitamin B12 PO 05/28/21 03/12/22 collagen .Route 06/08/21 03/12/22 prenat.vits,anjel,hmy-anjd-hsegq 1 tab PO DAILY 06/13/21 03/12/22 s-adenosylmethionine 400 mg 800 mg PO DAILY 06/13/21 03/12/22 tablet,delayed release (Marcus-E (Enteric Coated)) melatonin 10 mg capsule 10 mg PO BEDTIME PRN 06/06/22 06/06/22 Previous Rx's Medication Instructions Recorded ondansetron 4 mg disintegrating 4 mg PO Q8H PRN nausea and 09/14/21 tablet vomiting #14 tabs levothyroxine 75 mcg tablet 75 mcg .Route .COMPLEX #90 tabs 09/28/21 propranolol 10 mg tablet 10 mg PO TID PRN anxiety or panic 10/10/21 attacks #90 tabs bupropion HCl 150 mg 24 hr tablet, 150 mg PO QAM #90 tabs 06/06/22 extended release bupropion HCl 300 mg 24 hr tablet, 300 mg PO QAM #90 tabs 06/06/22 extended release Allergies Allergy/AdvReac Type Severity Reaction Status Date / Time cefaclor [From [facility]] Allergy Unknown Swelling Verified 06/06/22 14:14 all over Review of Systems Review of Systems ROS Unobtainable: All systems reviewed & are unremarkable except as noted in HPI and below Patient History Medical History Ankle fracture, right Anxiety Foot fracture, right Gestational diabetes mellitus (GDM) affecting second H/O pre-eclampsia Hypothyroidism Mitral valve prolapse Panic attacks Presence of intrauterine contraceptive device (IUD) (09/18/18) (spontaneous vaginal delivery) (~07/12/16) (spontaneous vaginal delivery) (~12/19/12) (spontaneous vaginal delivery) (~06/19/11) Surgical History H/O abdominoplasty (~01/2021) No history of previous surgery (~01/2021) [place] teeth extracted Family History Father Hypertension Altered cardiac tissue perfusion Skin cancer Mother Pre-eclampsia Toxemia in Skin cancer SLE (systemic lupus erythematosus related syndrome) Hemochromatosis Sister SLE (systemic lupus erythematosus related syndrome) Pre-eclampsia Sister Skin cancer Grandfather Heavy smoker Altered cardiac tissue perfusion Grandmother History of open heart surgery Cancer Heart valve replaced by transplant Stewart syndrome Grandfather MVA (motor vehicle accident) Grandmother Altered cardiac tissue perfusion CVA (cerebral vascular accident) Sister No problems noted. 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 HEENT: Head normocephalic, atraumatic, EOMI, pupils reactive, face symmetric, moist mucous membranes NECK: Supple, full range of motion CARDIOVASCULAR: Regular rate and rhythm without murmurs, rubs or gallops. No JVD. No swelling bilateral lower extremities. RESPIRATORY: Breath sounds equal bilaterally, no wheezes rales or rhonchi. ABDOMEN: Soft, nontender. Normoactive bowel sounds all 4 quadrants. No guarding or rebound, rigidity, no mass : No CVA tenderness EXTREMITIES: Normal range of motion, no clubbing or edema. Neurovascularly intact NEUROLOGICAL: Cranial nerves II through XII grossly intact. Moving all extremities SKIN: Warm, dry, no petechiae, no rashes or lesions. PSYCH: + anxiety, no suicidal thoughts. Initial Vital Signs Initial Vital Signs: Vital Signs Temperature 98.0 F 06/06/22 14:14 Pulse Rate 87 06/06/22 14:14 Respiratory Rate 18 06/06/22 14:14 Blood Pressure 137/93 H 06/06/22 14:14 Pulse Oximetry 100 06/06/22 14:14 Oxygen Delivery Method 06/06/22 14:14 Course Orders Ordered: ED Orders 06/06/22 14:17 COVID19 -Nasal RAPID/Pre-Proc Stat 06/06/22 14:40 Urine Drug Screen, Rapid Stat Urine Microscopic Stat 06/06/22 15:08 Chest [XR chest 1V] Stat 06/06/22 15:14 EKG-12 Lead Stat 06/06/22 15:40 Consult to [facility] [place]le Molder Hand Stat 06/06/22 15:56 CBC Auto Diff [Complete Blood Count AUTO DIFF] Stat CMP [Comprehensive Metabolic Panel] Stat CRP [C-Reactive Protein Quant] Stat D Dimer Stat ESR [Erythrocyte Sedimentation Rate] Stat ETOH [Ethanol (ETOH)] Stat TSH w/ Reflex to FT4 Stat Troponin & CK Cardiac Panel Stat 06/06/22 17:28 Urine Culture Stat Discontinued Medications Lorazepam (Lorazepam 0.5 Mg Tablet) 0.5 mg PO NOW ONE Stop: 06/06/22 15:42 Last Admin: 06/06/22 15:57 Dose: 0.5 mg Documented By: JUAN LUIS Vital Signs Vital signs: Vital Signs - 8 hr 06/06/22 14:14 06/06/22 17:32 Temperature 98.0 F Pulse Rate 87 88 Respiratory Rate 18 18 Blood Pressure 137/93 H 123/73 Pulse Oximetry 100 99 Oxygen Delivery Method Room Air Room Air MDM - SOB/Dyspnea Lab Data Result diagrams: 06/06/22 15:56 06/06/22 15:56 Labs: Lab Results 06/06/22 06/06/22 06/06/22 Range/Units 14:17 14:40 14:40 WBC (4.5-11.0) X10^3/uL RBC (4.0-5.2) X10^6/uL Hgb (12.0-16.0) g/dL Hct (36-46) % MCV (80-100) fL MCH (26-34) PG MCHC (30-36) % RDW (11.6-14.8) % Plt Count (150-400) X10^3/uL Neut % (Auto) (50-75) % Lymph % (Auto) (25-40) % [place] % (Auto) (3-14) % Eos % (Auto) (2-4) % Baso % (Auto) (0-2) % Neut # (Auto) (9640-5701) /uL Lymph # (Auto) (6179-6477) /uL [place] # (Auto) (0-900) /uL Eos # (Auto) (0-450) /uL Baso # (Auto) (0-100) /uL ESR (0-20) MM/HR D-Dimer (<230) ng/mL Sodium (137-145) mmol/L Potassium (3.4-5.1) mmol/L Chloride (98-107) mmol/L Carbon Dioxide (22-32) mmol/L BUN (7-17) mg/dL Creatinine (0.52-1.04) mg/dL Estimated GFR (>60) mL/min BUN/Creatinine Ratio (6-22) Glucose (70-100) mg/dL Calcium (8.4-10.2) mg/dL Total Bilirubin (0.2-1.3) mg/dL AST (14-36) IU/L ALT (<35) IU/L Alkaline Phosphatase (38-126) U/L Total Creatine Kinase (30-135) U/L CK-MB (CK-2) CK-MB (CK-2) Rel Index Troponin I (0.01-0.034) ng/mL C-Reactive Protein (<1.0) mg/dL Total Protein (6.3-8.2) g/dL Albumin (3.5-5.0) g/dL Globulin (1.7-4.1) g/dL Albumin/Globulin Ratio (1.0-2.8) TSH (0.47-4.68) uIU/mL Urine RBC 0-1/hpf (0-5/HPF) Urine WBC 0-1/hpf (0-5/HPF) Ur Squamous Epith Cells None seen (0-5/HPF) Urine Bacteria None seen (None) Ur Culture Indicated? Cult not indicated U Opiates 300ng/mL cut Negative (Negative) Ur Oxycodone Screen Negative (Negative) Urine Methadone Screen Negative (Negative) Ur Barbiturates Screen Negative (Negative) U Tricyclic Antidepress Negative (Negative) Ur Phencyclidine Scrn Negative (Negative) Ur Amphetamines Screen Negative (Negative) U Methamphetamines Scrn Negative (Negative) Ur MDMA Scrn (Ecstasy) Negative (Negative) U Benzodiazepines Scrn Negative (Negative) Urine Cocaine Screen Negative (Negative) U Marijuana (THC) Screen Negative (Negative) Ethyl Alcohol ( - 10) mg/dL SARS-CoV-2 (PCR) Negative (Negative) 06/06/22 06/06/2222 Range/Units 15:56 15:56 15:56 WBC 9.1 (4.5-11.0) X10^3/uL RBC 4.17 (4.0-5.2) X10^6/uL Hgb 13.4 (12.0-16.0) g/dL Hct 40.3 (36-46) % MCV 96.7 (80-100) fL MCH 32.1 (26-34) PG MCHC 33.2 (30-36) % RDW 13.9 (11.6-14.8) % Plt Count 269 (150-400) X10^3/uL Neut % (Auto) 80.4 H (50-75) % Lymph % (Auto) 11.6 L (25-40) % [place] % (Auto) 6.0 (3-14) % Eos % (Auto) 1.3 L (2-4) % Baso % (Auto) 0.7 (0-2) % Neut # (Auto) 7300 H (1640-0275) /uL Lymph # (Auto) 1100 (0739-6279) /uL [place] # (Auto) 500 (0-900) /uL Eos # (Auto) 100 (0-450) /uL Baso # (Auto) 100 (0-100) /uL ESR 4 (0-20) MM/HR D-Dimer < 200 (<230) ng/mL Sodium 140 (137-145) mmol/L Potassium 3.4 (3.4-5.1) mmol/L Chloride 105 (98-107) mmol/L Carbon Dioxide 24 (22-32) mmol/L BUN 13 (7-17) mg/dL Creatinine 0.74 (0.52-1.04) mg/dL Estimated GFR > 60 (>60) mL/min BUN/Creatinine Ratio 17.6 (6-22) Glucose 100 (70-100) mg/dL Calcium 9.2 (8.4-10.2) mg/dL Total Bilirubin 0.9 (0.2-1.3) mg/dL AST 23 (14-36) IU/L ALT 18 (<35) IU/L Alkaline Phosphatase 54 (38-126) U/L Total Creatine Kinase 54 (30-135) U/L CK-MB (CK-2) TNP CK-MB (CK-2) Rel Index TNP Troponin I < 0.012 (0.01-0.034) ng/mL C-Reactive Protein < 0.5 (<1.0) mg/dL Total Protein 7.6 (6.3-8.2) g/dL Albumin 4.9 (3.5-5.0) g/dL Globulin 2.7 (1.7-4.1) g/dL Albumin/Globulin Ratio 1.8 (1.0-2.8) TSH (0.47-4.68) uIU/mL Urine RBC (0-5/HPF) Urine WBC (0-5/HPF) Ur Squamous Epith Cells (0-5/HPF) Urine Bacteria (None) Ur Culture Indicated? U Opiates 300ng/mL cut (Negative) Ur Oxycodone Screen (Negative) Urine Methadone Screen (Negative) Ur Barbiturates Screen (Negative) U Tricyclic Antidepress (Negative) Ur Phencyclidine Scrn (Negative) Ur Amphetamines Screen (Negative) U Methamphetamines Scrn (Negative) Ur MDMA Scrn (Ecstasy) (Negative) U Benzodiazepines Scrn (Negative) Urine Cocaine Screen (Negative) U Marijuana (THC) Screen (Negative) Ethyl Alcohol ( - 10) mg/dL SARS-CoV-2 (PCR) (Negative) 06/06/22 06/06/22 Range/Units 15:56 15:56 WBC (4.5-11.0) X10^3/uL RBC (4.0-5.2) X10^6/uL Hgb (12.0-16.0) g/dL Hct (36-46) % MCV (80-100) fL MCH (26-34) PG MCHC (30-36) % RDW (11.6-14.8) % Plt Count (150-400) X10^3/uL Neut % (Auto) (50-75) % Lymph % (Auto) (25-40) % [place] % (Auto) (3-14) % Eos % (Auto) (2-4) % Baso % (Auto) (0-2) % Neut # (Auto) (2992-1922) /uL Lymph # (Auto) (0715-9318) /uL [place] # (Auto) (0-900) /uL Eos # (Auto) (0-450) /uL Baso # (Auto) (0-100) /uL ESR (0-20) MM/HR D-Dimer (<230) ng/mL Sodium (137-145) mmol/L Potassium (3.4-5.1) mmol/L Chloride (98-107) mmol/L Carbon Dioxide (22-32) mmol/L BUN (7-17) mg/dL Creatinine (0.52-1.04) mg/dL Estimated GFR (>60) mL/min BUN/Creatinine Ratio (6-22) Glucose (70-100) mg/dL Calcium (8.4-10.2) mg/dL Total Bilirubin (0.2-1.3) mg/dL AST (14-36) IU/L ALT (<35) IU/L Alkaline Phosphatase (38-126) U/L Total Creatine Kinase (30-135) U/L CK-MB (CK-2) CK-MB (CK-2) Rel Index Troponin I (0.01-0.034) ng/mL C-Reactive Protein (<1.0) mg/dL Total Protein (6.3-8.2) g/dL Albumin (3.5-5.0) g/dL Globulin (1.7-4.1) g/dL Albumin/Globulin Ratio (1.0-2.8) TSH 1.30 (0.47-4.68) uIU/mL Urine RBC (0-5/HPF) Urine WBC (0-5/HPF) Ur Squamous Epith Cells (0-5/HPF) Urine Bacteria (None) Ur Culture Indicated? U Opiates 300ng/mL cut (Negative) Ur Oxycodone Screen (Negative) Urine Methadone Screen (Negative) Ur Barbiturates Screen (Negative) U Tricyclic Antidepress (Negative) Ur Phencyclidine Scrn (Negative) Ur Amphetamines Screen (Negative) U Methamphetamines Scrn (Negative) Ur MDMA Scrn (Ecstasy) (Negative) U Benzodiazepines Scrn (Negative) Urine Cocaine Screen (Negative) U Marijuana (THC) Screen (Negative) Ethyl Alcohol < 10 ( - 10) mg/dL SARS-CoV-2 (PCR) (Negative) Point of Care Testing Test Results Negative Urine Dip Bedside Urine Glucose Negative Bedside Urine Bilirubin - Negative Bedside Urine Ketone +/- 5 Urine Specific [place] 1.010 Bedside Urine Occult Blood + Bedside Urine pH 7.5 Bedside Urine Protein - Negative Bedside Urine Urobilinogen - Negative Bedside Urine Nitrite - Negative Bedside Urine Leukocytes +++ 500 Esterase Imaging Data Chest x-ray: Radiologist's Impression: [address] [address] XRay Report Signed Patient: Jo-Ann Tobar MR#: [id number] : 1990 Acct:[id number] Age/Sex: 31 / F Date of Service: 06/06/22 Loc: ED Accession Number: [id number] ?? Procedure: XR chest 1V Ordering Provider: Treasure Blankenship D.O. PROCEDURE:? XR CHEST 1V ? INDICATIONS:? sob ? TECHNIQUE:? One view of the chest was acquired.? ? COMPARISON:? [facility], CR, XR CHEST 2V, 02/12/2020, 20:25. ? FINDINGS:? ? Surgical changes and devices:? None.? ? Lungs and pleura:? Lungs are clear.? No pleural effusions or pneumothorax.? ? Mediastinum:? Mediastinal contours appear normal.? Heart size is normal.? ? Bones and chest wall:? No suspicious bony lesions.? Overlying soft tissues appear unremarkable.? ? IMPRESSION:? No acute cardiopulmonary disease.? ? ? Dictated by: Monet Gamez M.D. on 06/06/2022 at 15:59 ? ? Approved by: Monet Gamez M.D. on 06/06/2022 at 15:59?? ECG Data Attestation: I personally reviewed and interpreted this ECG as follows: Prior ECG tracings: available for review Interpretation: Normal sinus rhythm rate of 98 GA 118, QRS [address] No acute [address] elevation. Patient has some diffuse ST depression. Patient has prior EKG from 10/20/2017 actually has similar changes. No dynamic or acute changes appreciated today MDM Narrative Medical decision making narrative: This is a 31-year-old female comes emergency department with complaint of anxiety, shortness of breath. Patient history of mitral valve prolapse and family history of sister possibly having the same she is unsure she is some cardiac issue that they watch. She is some sort of diffuse ST depression or GA elevation, this appears similar to prior from 2017, chest x-ray shows no acute changes. Plan for cardiac labs, thyroid to evaluate for any other changes. Patient has seen her primary care physician she is been referred to Cardiology but they also increased her Wellbutrin her symptoms do seem very consistent with anxiety but discussed with patient would like to rule out other causes as well. 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 Gal[place] reasonable to get a treadmill not nuclear stress test unclear if this was performed, Holter in July of 2019 was also normal at that time she did have some symptoms while wearing it. Discharge Plan Departure Patient Disposition: Home Clinical Impression: Anxiety Instructions: DI for Anxiety -- Adult Activity Restrictions/Additional Instructions: Follow-up with your provider Nicole valdez for your next scheduled appointment. I would also recommend following up with a counselor as they have been in process of setting you up. Your labs and imaging are reassuring today. Your EKG appears similar to your p rior from the past. And I was able to review her last cardiology note from 2018 your echo at that time had showed improvement or resolution of your mitral valve prolapse. I do think it is appropriate to follow-up with stress testing if you have not done this in the past. I would recommend trying your propranolol, this medication can be very helpful for anxiety. Please return for rapidly worsening symptoms thoughts of harming herself or others, passing out, worsening chest pain or shortness of breath, persistent vomiting, new swelling in her extremities or other new or concerning symptoms. Prescriptions: No Action collagen .Route Rx Instructions: with coffee Vitamin B12 PO Probiotic PO levothyroxine 75 mcg tablet 75 mcg .ROUTE .COMPLEX Qty: 90 3RF Rx Instructions: 75 mcg; Marcus-E (Enteric Coated) 400 mg tablet,delayed release (DR/EC) 800 mg PO DAILY prenat.vits,anjel,[id number] Tablet 1 tab PO DAILY ondansetron 4 mg tablet,disintegrating 4 mg PO Q8H PRN (Reason: nausea and vomiting) Qty: 14 0RF propranolol 10 mg tablet 10 mg PO TID PRN (Reason: anxiety or panic attacks) Qty: 90 1RF Rx Instructions: Take one tab up to 3x/day as needed for anxiety or panic bupropion HCl 150 mg tablet extended release 24 hr 150 mg PO QAM Qty: 90 3RF Rx Instructions: Take 150mg tab along with 300mg each morning, total 450mg daily bupropion HCl 300 mg tablet extended release 24 hr 300 mg PO QAM Qty: 90 3RF Rx Instructions: Take 300mg tab along with 150mg tablet (total 450mg) daily melatonin 10 mg capsule 10 mg PO BEDTIME PRN Referrals: Nicole Valdez ARNP [Primary Care Provider] - Visit Report Forms: Patient Portal/API
[2022-06-06] MEDS: LORazepam 0.5 MG TABLET PO (15:57)
[2022-06-06 16:05] LABS: Add Manual Diff / Slide Review NO; Basophils Absolute Auto 100 /uL (0-100); Basophils Percent Auto 0.7 % (0-2); Eosinophils Absolute Auto 100 /uL (0-450); Eosinophils Percent Auto 1.3 % (2-4); Hematocrit 40.3 % (36-46); Hemoglobin 13.4 g/dL (12.0-16.0); Lymphocytes Absolute Auto 1100 /uL (1100-4500); Lymphocytes Percent Auto 11.6 % (25-40); Mean Corpuscular HGB Conc 33.2 % (30-36); Mean Corpuscular Hemoglobin 32.1 PG (26-34); Mean Corpuscular Volume 96.7 fL (80-100); Monocytes Absolute Auto 500 /uL (0-900); Neutrophils Absolute Auto 7300 /uL (1500-7000); Neutrophils Percent Auto 80.4 % (50-75); Platelet Count 269 X10^3/uL (150-400); Red Blood Cell Count 4.17 X10^6/uL (4.0-5.2); Red Cell Distribution Width 13.9 % (11.6-14.8); White Blood Cell Count 9.1 X10^3/uL (4.5-11.0)
[2022-06-06 16:23] LABS: Alanine Aminotransferase 18 IU/L (<35); Albumin 4.9 g/dL (3.5-5.0); Albumin Globulin Ratio 1.8 (1.0-2.8); Alkaline Phosphatase 54 U/L (38-126); Aspartate Aminotransferase 23 IU/L (14-36); BUN Creatinine Ratio 17.6 (6-22); Bilirubin Total 0.9 mg/dL (0.2-1.3); Blood Urea Nitrogen 13 mg/dL (7-17); C-Reactive Protein Quant < 0.5 mg/dL (<1.0); Calcium 9.2 mg/dL (8.4-10.2); Carbon Dioxide 24 mmol/L (22-32); Chloride 105 mmol/L (98-107); Creatine Kinase 54 U/L (30-135); Estimated Glomerular Filt Rate > 60 mL/min (>60); Globulin 2.7 g/dL (1.7-4.1); Glucose 100 mg/dL (70-100); HEMOLYSIS < 15 (0-50); Potassium 3.4 mmol/L (3.4-5.1); Sodium 140 mmol/L (137-145); Total Protein 7.6 g/dL (6.3-8.2)
[2022-06-06 16:27] LABS: D Dimer < 200 ng/mL (<230)
[2022-06-06 16:32] LABS: Troponin I < 0.012 ng/mL (0.01-0.034)
[2022-06-06 16:47] LABS: UR Morphine/Opiate cutoff 300 Negative (Negative); Ur Creatinine Normal (Normal); Ur Specific Gravity Normal (Normal); Urine Amphetamines Negative (Negative); Urine Barbiturates Negative (Negative); Urine Benzodiazepines Negative (Negative); Urine Cocaine Negative (Negative); Urine MDMA Negative (Negative); Urine Methadone Negative (Negative); Urine Methamphetamines Negative (Negative); Urine Oxycodone Negative (Negative); Urine Phencyclidine Negative (Negative); Urine Tetrahydrocannabinol Negative (Negative); Urine Tricyclic Antidepressant Negative (Negative); Urine pH Normal (Normal)
[2022-06-06 16:53] LABS: Ethanol (ETOH) < 10 mg/dL
[2022-06-06 17:23] LABS: Erythrocyte Sedimentation Rate 4 MM/HR (0-20)
[2022-06-06 17:32] VITALS: BP 123/73; PULSE 88; RESP 18; O2SAT 99
--- NOTE | 2022-06-06 17:33 | CM.SWNOTE ---
HULL SORTER Assessment Note HULL SORTER enters room to meet with patient. Patient is 31 y/o female who presents to the ED after phone PCP visit with JAMILA Parsons due to concern for SOB and anxiety. Patient endorses significant life stressors that have increased her anxiety in the last year or so. Patient endorses trouble sleeping due to racing thoughts. Patient endorses that she has rx for Wellbutrin and is about to get an increase in her dosage, patient endorses she has not yet tried her as needed rx for Propanolol. Patient endorses the ativan she was given in the ED and it has significantly helped her anxiety. Patient endorses hx of seeing MH provider and is seeking a new one. Patient has f/u appt with PCP on 06/20/22. HULL SORTER discusses breathing techniques, coping strategies and grounding techniques with patient. HULL SORTER provides paper documentation about these strategies as well as crisis contacts and a list of MH providers that accept her insurance. Patient denies SI or self harm. It is the opinion of this HULL SORTER that patient is safe to d/c to home when medically clear. HULL SORTER reviews this with ED provider Dr. Blankenship who indicates agreement and understanding. Plan: Patient to d/c to home when medically clear, f/u with PCP and seek outpatient MH provider. DIO Martinez
== END 2022-06-06 17:32 | disposition home or self-care (01) ==
PROVIDERS: Emergency Provider Emergency Medicine; PCP Nurse Practitioner
DX: F41.9 Anxiety disorder, unspecified (principal); R06.02 Shortness of breath; Z86.79 Personal history of other diseases of the circulatory system; Z20.822 Contact with and (suspected) exposure to COVID-19
CPT/HCPCS: 71045; 80053; 80305; 80320; 81003; 81015; 81025; 82550; 84443; 84484; 85025; 85379; 85651; 86140; 87086; 87635; 93005; 93010; 99283; 99284; C9803

== ENCOUNTER → 2023-03-11 15:59 | Outpatient (CLI) | payer OTHER, MEDICAID, SELFPAY ==
--- NOTE | 2023-03-11 16:03 | DI.RAD.S_ITS ---
PROCEDURE: XR CHEST 2V INDICATIONS: Worsening cough TECHNIQUE: 2 views of the chest were acquired. COMPARISON: [facility], CR, XR CHEST 2V, 02/12/2020, 20:25. FINDINGS: Surgical changes and devices: None. Lungs and pleura: Lungs are clear. No pleural effusions or pneumothorax. Mediastinum: Mediastinal contours are normal. Heart size is normal. Bones and chest wall: No suspicious bony abnormalities. Soft tissues appear unremarkable. IMPRESSION: No source for cough identified radiographically. Dictated by: Carlos Youssef RR Interpreted: Sheila Trujillo MD on 03/11/2023 at 16:26 Transcribed by: KWAN on 03/11/2023 at 16:26 Approved by: Sheila Trujillo M.D. on 03/11/2023 at 17:27
== END ==
PROVIDERS: PCP Nurse Practitioner; Referring Provider Nurse Practitioner; Visit Provider Nurse Practitioner
DX: R05.9 Cough, unspecified (principal)
CPT/HCPCS: 71046

== ENCOUNTER → 2023-04-16 14:48 | Outpatient (CLI) | payer OTHER, MEDICAID, SELFPAY ==
[2023-04-16 16:33] LABS: Urine N gonorrhoeae NOT DETECTED
[2023-04-16 16:56] LABS: Urine Chlamydia NOT DETECTED
== END ==
PROVIDERS: PCP Nurse Practitioner; Referring Provider Nurse Practitioner Family; Visit Provider Nurse Practitioner Family
DX: Z20.2 Contact with and (suspected) exposure to infections with a predominantly sexual mode of transmission (principal)
CPT/HCPCS: 87491; 87591

== ENCOUNTER → 2023-07-15 11:24 | Outpatient (CLI) | payer OTHER, MEDICAID, SELFPAY | PROVIDERS: PCP Nurse Practitioner; Visit Provider Physician Assistant | DX: J02.9 Acute pharyngitis, unspecified (principal) | CPT/HCPCS: 87070; 87491; 87591; 87880 ==

== ENCOUNTER → 2023-09-17 11:30 | Outpatient (CLI) | payer OTHER, MEDICAID, SELFPAY ==
[2023-09-17 12:12] LABS: Add Manual Diff / Slide Review NO; Basophils Absolute Auto 0 /uL (0-100); Basophils Percent Auto 0.4 % (0-2); Eosinophils Absolute Auto 100 /uL (0-450); Eosinophils Percent Auto 1.4 % (2-4); Hematocrit 40.4 % (36-46); Hemoglobin 13.6 g/dL (12.0-16.0); Lymphocytes Absolute Auto 1100 /uL (1100-4500); Lymphocytes Percent Auto 14.6 % (25-40); Mean Corpuscular HGB Conc 33.6 % (30-36); Mean Corpuscular Hemoglobin 32.8 PG (26-34); Mean Corpuscular Volume 97.6 fL (80-100); Monocytes Absolute Auto 600 /uL (0-900); Monocytes Percent Auto 7.6 % (3-14); Neutrophils Absolute Auto 5900 /uL (1500-7000); Platelet Count 232 X10^3/uL (150-400); Red Blood Cell Count 4.14 X10^6/uL (4.0-5.2); Red Cell Distribution Width 13.4 % (11.6-14.8); White Blood Cell Count 7.8 X10^3/uL (4.5-11.0)
[2023-09-17 12:31] LABS: Erythrocyte Sedimentation Rate 5 MM/HR (0-20)
[2023-09-17 12:51] LABS: Alanine Aminotransferase 16 IU/L (<35); Albumin 4.6 g/dL (3.5-5.0); Albumin Globulin Ratio 1.8 (1.0-2.8); Alkaline Phosphatase 43 U/L (38-126); Aspartate Aminotransferase 20 IU/L (14-36); BUN Creatinine Ratio 15.2 (6-22); Bilirubin Total 0.6 mg/dL (0.2-1.3); Blood Urea Nitrogen 10 mg/dL (7-17); Carbon Dioxide 26 mmol/L (22-32); Chloride 102 mmol/L (98-107); Estimated Glomerular Filt Rate > 60 mL/min (>60); Globulin 2.5 g/dL (1.7-4.1); Glucose 100 mg/dL (70-100); HEMOLYSIS < 15 (0-50); Sodium 139 mmol/L (137-145); Total Protein 7.1 g/dL (6.3-8.2)
[2023-09-17 13:07] LABS: C-Reactive Protein Quant < 0.5 mg/dL (<1.0); Free T3, Triiodothyronine Free 4.12 pg/mL (2.77-5.27); Free T4, Direct Thyroxine 1.47 ng/dL (0.78-2.19)
[2023-09-17 13:20] LABS: Thyroid Stimulating Hormone 1.94 uIU/mL (0.47-4.68)
[2023-09-17 15:27] LABS: Urine N gonorrhoeae NOT DETECTED
[2023-09-17 15:39] LABS: Creatinine Urine Random 30.2 mg/dL
[2023-09-17 15:43] LABS: Microalbumin Urine Random < 0.6 mg/dL (0-1.6)
[2023-09-17 16:24] LABS: Urine Chlamydia NOT DETECTED
[2023-09-18 06:01] LABS: RPR Screen Non Reactive (Non Reactive)
[2023-09-18 16:28] LABS: Hepatitis B Surface Antigen NEGATIVE s/c (NEGATIVE)
[2023-09-18 16:46] LABS: HIV 1 & 2 Ab/Ag 4th Gen Combo NEGATIVE (NEGATIVE); Hep C Virus Ab w/Reflex Quant NEGATIVE s/c (NEGATIVE)
== END ==
PROVIDERS: PCP Nurse Practitioner; Referring Provider Physician Assistant; Visit Provider Physician Assistant
DX: Z00.00 Encounter for general adult medical examination without abnormal findings (principal); Z11.3 Encounter for screening for infections with a predominantly sexual mode of transmission; Z11.4 Encounter for screening for human immunodeficiency virus [HIV]; Z11.59 Encounter for screening for other viral diseases; M79.10 Myalgia, unspecified site
CPT/HCPCS: 36415; 80053; 82043; 82570; 84439; 84443; 84481; 85025; 85651; 86140; 86592; 86695; 86696; 86803; 87340; 87389; 87491; 87591

== ENCOUNTER → 2023-10-29 12:06 | Outpatient (CLI) | payer OTHER, MEDICAID, SELFPAY ==
--- NOTE | 2023-10-29 12:09 | DI.RAD.S_ITS ---
PROCEDURE: XR THORACIC SPINE 3V INDICATIONS: cough TECHNIQUE: 3 views of the thoracic spine were acquired. COMPARISON: None. FINDINGS: Bones: No fractures or dislocations. No suspicious bony lesions. 12 pairs of ribs are noted, and appear intact where visualized. Mild dextrocurvature of the thoracic spine. Soft tissues: No paravertebral stripe thickening. IMPRESSION: Mild dextrocurvature of the thoracic spine. No significant degenerative changes. No acute osseous abnormalities. Dictated by: Alberto Vital M.D. on 10/29/2023 at 14:25 Approved by: Alberto Vital M.D. on 10/29/2023 at 14:25
--- NOTE | 2023-10-29 12:09 | DI.RAD.S_ITS ---
PROCEDURE: XR LUMBAR SPINE 2-3V INDICATIONS: cough TECHNIQUE: 3 views of the lumbar spine were acquired. COMPARISON: None. FINDINGS: Bones: 5 [id number] vertebrae are present. There is normal bony alignment. No vertebral body compression fractures. No suspicious bony lesions. Soft tissues: Overlying bowel gas pattern is normal. No suspicious soft tissue calcifications. IMPRESSION: No acute bony abnormality. Dictated by: Alberto Vital M.D. on 10/29/2023 at 14:26 Approved by: Alberto Vital M.D. on 10/29/2023 at 14:26
--- NOTE | 2023-10-29 12:09 | DI.RAD.S_ITS ---
PROCEDURE: XR CHEST 2V INDICATIONS: cough TECHNIQUE: 2 views of the chest were acquired. COMPARISON: [facility], CR, XR CHEST 2V, 03/11/2023, 16:10. [facility], CR, XR CHEST 1V, 06/06/2022, 15:06. FINDINGS: Surgical changes and devices: None. Lungs and pleura: Lungs are clear. No pleural effusions or pneumothorax. Mediastinum: Mediastinal contours are normal. Heart size is normal. Bones and chest wall: No suspicious bony abnormalities. Soft tissues appear unremarkable. IMPRESSION: No acute cardiopulmonary abnormality is seen. Dictated by: Alberto Vital M.D. on 10/29/2023 at 14:24 Approved by: Alberto Vital M.D. on 10/29/2023 at 14:25
--- NOTE | 2023-10-29 12:09 | DI.RAD.S_ITS ---
PROCEDURE: XR CERVICAL SPINE 2V OR 3V INDICATIONS: cough TECHNIQUE: 3 view(s) of the cervical spine were acquired. COMPARISON: None. FINDINGS: Bones: No fractures or dislocations to the T1 level. Straightening of normal cervical lordosis. Partial ankylosis of the C7 and T1 vertebral bodies. No significant degenerative changes. The lateral masses of C1 appear intact on the odontoid view. No suspicious bony lesions. Soft tissues: No prevertebral soft tissue swelling. IMPRESSION: Loss of lordosis which could be related to muscle spasm, rigidity or simply positional. No significant degenerative changes. Dictated by: Alberto Vital M.D. on 10/29/2023 at 14:26 Approved by: Alberto Vital M.D. on 10/29/2023 at 14:27
[2023-10-29 13:09] LABS: Add Manual Diff / Slide Review NO; Basophils Absolute Auto 0 /uL (0-100); Basophils Percent Auto 0.5 % (0-2); Eosinophils Absolute Auto 100 /uL (0-450); Hematocrit 41.3 % (36-46); Hemoglobin 13.9 g/dL (12.0-16.0); Lymphocytes Absolute Auto 1500 /uL (1100-4500); Lymphocytes Percent Auto 15.6 % (25-40); Mean Corpuscular HGB Conc 33.5 % (30-36); Mean Corpuscular Hemoglobin 32.4 PG (26-34); Mean Corpuscular Volume 96.7 fL (80-100); Monocytes Absolute Auto 700 /uL (0-900); Monocytes Percent Auto 6.8 % (3-14); Neutrophils Absolute Auto 7300 /uL (1500-7000); Neutrophils Percent Auto 76.1 % (50-75); Platelet Count 239 X10^3/uL (150-400); Red Blood Cell Count 4.28 X10^6/uL (4.0-5.2); Red Cell Distribution Width 13.2 % (11.6-14.8); White Blood Cell Count 9.6 X10^3/uL (4.5-11.0)
[2023-10-29 13:30] LABS: Erythrocyte Sedimentation Rate 7 MM/HR (0-20)
[2023-10-29 13:44] LABS: Alanine Aminotransferase 17 IU/L (<35); Albumin 4.7 g/dL (3.5-5.0); Albumin Globulin Ratio 1.7 (1.0-2.8); Alkaline Phosphatase 45 U/L (38-126); Aspartate Aminotransferase 21 IU/L (14-36); BUN Creatinine Ratio 14.5 (6-22); Bilirubin Total 0.9 mg/dL (0.2-1.3); Blood Urea Nitrogen 9 mg/dL (7-17); C-Reactive Protein Quant < 0.5 mg/dL (<1.0); Calcium 9.9 mg/dL (8.4-10.2); Carbon Dioxide 25 mmol/L (22-32); Chloride 103 mmol/L (98-107); Cholesterol 169 mg/dL (140-199); Estimated Glomerular Filt Rate > 60 mL/min (>60); Globulin 2.8 g/dL (1.7-4.1); Glucose 95 mg/dL (70-100); HDL Cholesterol 70 mg/dL (40-60); HEMOLYSIS < 15 (0-50); LDL Cholesterol Calculated 82 mg/dL (<100); Sodium 136 mmol/L (137-145); Total Protein 7.5 g/dL (6.3-8.2); Triglycerides 86 mg/dL (35-150)
[2023-10-29 13:47] LABS: Rheumatoid Factor < 8.6 IU/mL (<12.0)
[2023-11-02 17:40] LABS: ANA Screen, IFA Negative (.)
== END ==
PROVIDERS: PCP Nurse Practitioner; Referring Provider Nurse Practitioner; Visit Provider Nurse Practitioner
DX: Z00.00 Encounter for general adult medical examination without abnormal findings (principal); R05.9 Cough, unspecified; M54.2 Cervicalgia; M54.6 Pain in thoracic spine; M54.50 Low back pain, unspecified; B99.9 Unspecified infectious disease; Z11.3 Encounter for screening for infections with a predominantly sexual mode of transmission
CPT/HCPCS: 36415; 71046; 72040; 72072; 72100; 80053; 80061; 85025; 85651; 86038; 86140; 86430

== ENCOUNTER → 2023-12-11 12:08 | Outpatient (CLI) | payer OTHER, MEDICAID, SELFPAY ==
[2023-12-11 13:06] LABS: Influenza A - CEPHEID Flu A POSITIVE (NEGATIVE); Influenza B - CEPHEID Flu B NEGATIVE (NEGATIVE); Respiratory Syncytial Virus Negative (Negative)
[2023-12-11 13:09] LABS: COVID-19 CEPHEID 4-PLEX PCR Negative (Negative)
== END ==
PROVIDERS: PCP Nurse Practitioner; Visit Provider Nurse Practitioner Family
DX: R05.1 Acute cough (principal); J02.9 Acute pharyngitis, unspecified
CPT/HCPCS: 0241U; 87070

== ENCOUNTER → 2024-06-21 11:21 | Outpatient (CLI) | payer OTHER, MEDICAID, SELFPAY ==
[2024-06-21 13:49] LABS: HCG Quantitative /Beta subunit < 2.39 mIU/mL
[2024-06-21 14:04] LABS: Thyroid Stimulating Hormone 2.85 uIU/mL (0.47-4.68)
== END ==
PROVIDERS: PCP Nurse Practitioner; Referring Provider Nurse Practitioner; Visit Provider Nurse Practitioner
DX: N89.8 Other specified noninflammatory disorders of vagina (principal); N92.6 Irregular menstruation, unspecified; R23.2 Flushing
CPT/HCPCS: 36415; 84443; 84702; 87070; 87205

== ENCOUNTER → 2024-06-28 17:17 | Outpatient (CLI) | payer OTHER, MEDICAID, SELFPAY ==
[2024-06-28 18:25] LABS: HCG Quantitative /Beta subunit 131.32 mIU/mL
== END ==
PROVIDERS: PCP Nurse Practitioner; Referring Provider Nurse Practitioner; Visit Provider Nurse Practitioner
DX: N92.6 Irregular menstruation, unspecified (principal)
CPT/HCPCS: 36415; 84702

== ENCOUNTER → 2024-06-30 16:58 | Outpatient (CLI) | payer OTHER, MEDICAID, SELFPAY ==
[2024-06-30 18:32] LABS: HCG Quantitative /Beta subunit 378.53 mIU/mL
== END ==
PROVIDERS: PCP Nurse Practitioner; Referring Provider Nurse Practitioner; Visit Provider Nurse Practitioner
DX: N91.0 Primary amenorrhea (principal)
CPT/HCPCS: 36415; 84702

== ENCOUNTER → 2024-07-07 09:40 | Outpatient (CLI) | payer OTHER, MEDICAID, SELFPAY ==
[2024-07-07 11:17] LABS: HCG Quantitative /Beta subunit 6377.3 mIU/mL
== END ==
PROVIDERS: Student in an Organized Health Care Education/Training Program; PCP Nurse Practitioner; Referring Provider Nurse Practitioner; Visit Provider Nurse Practitioner
DX: O26.851 Spotting complicating pregnancy, first trimester (principal)
CPT/HCPCS: 36415; 84702

== ENCOUNTER → 2024-07-08 16:28 | Outpatient (CLI) | payer OTHER, MEDICAID, SELFPAY ==
--- NOTE | 2024-07-08 16:29 | DI.US.S_ITS ---
PROCEDURE: US OB <= 14 WEEKS FETUS INDICATIONS: Viability Check/spotting early OUTSIDE/PRIOR DATING DATA: Last menstrual period (LMP): 05/15/2024 LMP-based estimated date of delivery (NOVA): 02/19/2025. First dating scan (date and location): 07/08/2024. Estimated date of delivery (NOVA) from first dating scan: Not applicable. TECHNIQUE: Real-time scanning was performed of the fetus and maternal pelvic organs, with image documentation. COMPARISON: [facility], , OB <= 14 WEEKS FETUS, 06/19/2021, 13:26. FINDINGS: Uterine gestational sac is present measuring 9 mm corresponding to 5 weeks 5 days. No crown-rump length or pole is identified. Maternal organs: Ovaries are unremarkable. IMPRESSION: Intrauterine gestational sac corresponding to 5 weeks 5 days compared to clinical age of 7 weeks 5 days. Recommend correlation to beta HCG levels and short interval ultrasound follow-up to document progression or potentially blighted. We strive to produce accurate, complete, and clear reports of imaging services. To assist us in improving patient care, this report was composed using standard report templates and voice recognition software. Therefore, it may contain abnormal punctuation, insertions and/or omissions. Occasional wrong-word or sound-alike substitutions may occur. Though we review the report and make efforts to correct it, we do recommend that the report be read carefully in proper context to recognize any text inaccuracies. Dictated by: Sheila Trujillo M.D. on 07/08/2024 at 22:07 Approved by: Sheila Trujillo M.D. on 07/08/2024 at 22:09
== END ==
LOC: US 16:28
PROVIDERS: PCP Nurse Practitioner; Referring Provider Student in an Organized Health Care Education/Training Program; Visit Provider Student in an Organized Health Care Education/Training Program
DX: O26.859 Spotting complicating pregnancy, unspecified trimester (principal); O36.80X0 Pregnancy with inconclusive fetal viability, not applicable or unspecified
CPT/HCPCS: 76801

== ENCOUNTER → 2024-08-23 06:46 | Outpatient (CLI) | payer OTHER, MEDICAID, SELFPAY ==
--- NOTE | 2024-08-23 06:48 | DI.US.S_ITS ---
PROCEDURE: US PELVIC COMPLETE INDICATIONS: bleeding post TAB TECHNIQUE: Real-time scanning was performed of the pelvic organs, with image documentation. Additional endovaginal scanning was necessary due to incomplete visualization of the adnexal and endometrial structures by transabdominal scanning. COMPARISON: [facility], US, US OB <= 14 WEEKS FETUS, 07/08/2024, 16:45. FINDINGS: Uterus: 8 x 6 x 7 cm. Endometrium is thickened at 20 mm. In the central endometrium, there is a 1.6 x 1.6 x 1.4 cm lesion with minimal peripheral vascularity Ovaries: Right ovary measures 10 cc. Left ovary measures a cc. Unremarkable adnexal structures. Other: No pathologic intrapelvic free fluid. IMPRESSION: Thickened endometrium measuring 2 cm with a 1.6 cm central lesion. There is minimal peripheral vascularity. This is indeterminate for debris/blood clot versus small amount of retained products. Continued imaging follow-up could be obtained if clinically indicated. Dictated by: Jose Bowser M.D. on 08/23/2024 at 8:09 Approved by: Jose Bowser M.D. on 08/23/2024 at 8:11
== END ==
PROVIDERS: Referring Provider Student in an Organized Health Care Education/Training Program; Visit Provider Student in an Organized Health Care Education/Training Program
DX: N93.9 Abnormal uterine and vaginal bleeding, unspecified (principal); R93.89 Abnormal findings on diagnostic imaging of other specified body structures; N85.9 Noninflammatory disorder of uterus, unspecified
CPT/HCPCS: 76830; 76856

== ENCOUNTER → 2024-10-11 10:56 | Outpatient (CLI) | payer OTHER, MEDICAID, SELFPAY | PROVIDERS: PCP Family Medicine; Referring Provider Family Medicine; Visit Provider Family Medicine | DX: R10.9 Unspecified abdominal pain (principal) | CPT/HCPCS: 36415; 82784; 83516 ==

== ENCOUNTER → 2024-10-25 08:52 | Outpatient (CLI) | payer OTHER, MEDICAID, SELFPAY ==
--- NOTE | 2024-10-25 08:53 | DI.MG.S_ITS ---
BILATERAL DIGITAL DIAGNOSTIC MAMMOGRAM 3D/2D: 10/25/2024 CLINICAL: Baseline exam. Left breast pain and Mass. No prior exams were available for comparison. The breasts are heterogeneously dense, which may obscure small masses (category c / 51-75% glandular tissue). No significant masses, calcifications, or other findings are seen in either breast. Post procedural changes noted in the inferior aspect of the bilateral breast. IMPRESSION: INCOMPLETE: NEED ADDITIONAL IMAGING EVALUATION There is no abnormality seen in the right breast to correspond with the area of clinical concern indicated by triangular and square markers in the middle depth in the upper outer quadrant, however, ultrasound is recommended for further evaluation and is scheduled to immediately follow this examination. Based on the Tyrer Cuzick model (a risk assessment model) the patient's lifetime risk is 12.1% and her 10 year risk is 0.7%. According to the ACR, ACS, and NCCN guidelines, an annual breast MRI exam along with mammogram is recommended if the patient's lifetime risk is 20% or greater. This exam was interpreted at Station ID: [id number]. NOTE: For mammograms, a report in lay terms will be sent to the patient. Approximately 15% of breast malignancies will not be visualized mammographically. In the management of a palpable breast mass, a negative mammogram must not discourage biopsy of a clinically suspicious lesion. Electronically Signed By: Mikey Allen M.D. aty/:10/25/2024 12:58:41 letter sent: Additional Imaging Needed ACR BI-RADS Category 0: Incomplete: Need Additional Imaging Evaluation
--- NOTE | 2024-10-25 09:34 | DI.US.S_ITS ---
Patient Name: RONNI BUCHANAN date: 1990 Sex: F Attending Physician: Katty Indications: Date: 10/25/2024 13:00 At the request of: SONIA CONTEH Procedure: US breast RT limited LIMITED ULTRASOUND OF RIGHT BREAST: 10/25/2024 CLINICAL: Pain, lump uoq. Comparison is made to exam dated: 10/25/2024 mammogram - [facility]. Real-time ultrasound of the right breast upper outer quadrant was performed. Sanchez scale images of the real-time examination were reviewed. There is a benign lymph node in the right breast at 9 o'clock that is an incidental finding. No significant abnormalities were seen sonographically in the right breast. IMPRESSION: BENIGN There is no sonographic evidence of malignancy. There is no abnormality seen in the right breast to correspond with the area of clinical concern, palpable abnormality, and pain in the middle depth in the upper outer quadrant, however, recommend clinical follow up for persistent or worsening symptoms, or development of any clinically suspicious findings. Recommend initiating routine screening mammograms at age 40. Findings and recommendations were conveyed to the patient during today's evaluation. This exam was interpreted at Station ID: [id number]. Electronically Signed By: Mikey Allen M.D. aty/:10/25/2024 13:00:58 letter sent: Clinical Evaluation Continued Report - Page 2 of 2 Patient Name: RONNI BUCHANAN date: 1990 Sex: F Attending Physician: Katty Indications: Date: 10/25/2024 13:00 At the request of: SONIA CONTEH Procedure: US breast RT limited ACR BI-RADS Category 2: Benign
== END ==
PROVIDERS: PCP Family Medicine; Referring Provider Family Medicine; Visit Provider Family Medicine
DX: N63.10 Unspecified lump in the right breast, unspecified quadrant (principal); N64.4 Mastodynia; R92.333 Mammographic heterogeneous density, bilateral breasts; R92.2 Inconclusive mammogram
CPT/HCPCS: 76642; 77066; G0279

== ENCOUNTER → 2024-12-08 08:12 | Outpatient (CLI) | payer OTHER, SELFPAY ==
[2024-12-08 09:10] LABS: COVID-19 CEPHEID 4-PLEX PCR Negative (Negative); Influenza A - CEPHEID Flu A NEGATIVE (NEGATIVE); Influenza B - CEPHEID Flu B NEGATIVE (NEGATIVE); Respiratory Syncytial Virus Negative (Negative)
== END ==
PROVIDERS: PCP Family Medicine; Referring Provider Physician Assistant Surgical; Visit Provider Physician Assistant Surgical
DX: J02.9 Acute pharyngitis, unspecified (principal); R51.9 Headache, unspecified
CPT/HCPCS: 87635; 87400 ×2; 87420; 0241U; 87070; 87880

== ENCOUNTER → 2025-01-26 14:20 | Outpatient (CLI) | payer OTHER, SELFPAY ==
--- NOTE | 2025-01-26 14:21 | DI.RAD.S_ITS ---
PROCEDURE: XR FOOT LT MIN 3V INDICATIONS: Slipped, pain at base of great toe TECHNIQUE: 3 views of the foot were acquired. COMPARISON: None. FINDINGS: Bones: Slight cortical step-off at the base of the distal 1st phalanx along the lateral side. Soft tissues: No tibiotalar joint effusion. Achilles tendon appears normal. IMPRESSION: Slight cortical step-off at the base of the distal 1st phalanx along the lateral side. Findings could represent a minimally displaced intra-articular fracture. Correlate with point tenderness. Dictated by: Neri Del Angel M.D. on 01/27/2025 at 11:59 Approved by: Neri Del Angel M.D. on 01/27/2025 at 12:00
== END ==
LOC: RAD 14:21
PROVIDERS: PCP Family Medicine; Referring Provider Nurse Practitioner Family; Visit Provider Nurse Practitioner Family
DX: S99.922A Unspecified injury of left foot, initial encounter (principal); W01.0XXA Fall on same level from slipping, tripping and stumbling without subsequent striking against object, initial encounter
CPT/HCPCS: 73630

== ENCOUNTER 2025-06-03 09:45 | Outpatient (RCR) | payer OTHER, SELFPAY ==
--- NOTE | 2025-05-13 17:00 | PT.OIE ---
Current Diagnoses Dorsalgia, unspecified (05/13/25) Past Medical History (Last Updated 10/11/24 @ 08:54 by Aimee Alaniz MD) Ankle fracture, right Anxiety Anxiety and depression Chronic cough Foot fracture, right Gestational diabetes mellitus (GDM) affecting second H/O pre-eclampsia Hypothyroidism Panic attacks Presence of intrauterine contraceptive device (IUD) (09/18/18) (spontaneous vaginal delivery) (~07/12/16) (spontaneous vaginal delivery) (~12/19/12) (spontaneous vaginal delivery) (~06/19/11) Past Surgical History (Last Updated 07/08/24 @ 09:41 by Montse Sanford RN) H/O abdominoplasty (~01/2021) [place] teeth extracted Visit Care Team Role Provider Type Aimee Alaniz MD Attending Provider Physician Family Provider Primary Care Provider Referring Provider Specialty: [facility] Practice Address: [address] [place] [address], [facility] Email: [email or web address] Physical Therapy Initial Evaluation PT-OP-A Visit Information Start: 05/13/25 12:53 Freq: Status: Active Protocol: Document 05/13/25 13:04 ARCHITECTURAL DRAFTER (Rec: 05/13/25 18:29 ARCHITECTURAL DRAFTER Laptop) Out-Patient Physical Therapy Visit Information Visit Information Visit Type Initial Evaluation Visit Note 0/24 units aloted Visit Start Time 13:05 Visit Stop Time 13:55 Visit Number 1 Number of ENVIRONMENTAL SERVICES LEAD Visits 0 Evaluation Information Evaluation Date 05/13/25 PT-OP-B Current Condition Start: 05/13/25 12:53 Freq: Status: Active Protocol: Document 05/13/25 13:04 ARCHITECTURAL DRAFTER (Rec: 05/13/25 13:55 ARCHITECTURAL DRAFTER Laptop) Current Condition History of Current Condition Onset Date ~2 years ago Current Complaints L upper back/neck pain History of Current Pt reports pain to L chest, neck, L shoulder, and upper Condition back pain which started about 2 years ago and is unsure of cause. Pt reports pain starts in the front of her chest on L side and moves to back and neck and was really bad but has gradually improved but still remains low but constant. Pt reports flare ups that spread to whole back and makes movement very difficult. Sitting for too long hurts, standing for too long hurts. Has tingling in B hands, especially when waking up from sleeping. 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 Pt has seen chiropractor and massage therapy for back pain and has trouble affording massage therapy and did not like the chiropractor d/t increased pain. Treatment Goals Patient/Caregiver No more tingling hands, not being in pain all the time. Goals PT-OP-C Subjective Start: 05/13/25 12:53 Freq: Status: Active Protocol: Document 05/13/25 13:04 ARCHITECTURAL DRAFTER (Rec: 05/13/25 18:29 ARCHITECTURAL DRAFTER Laptop) Patient Questionnaires Oswestry Low Back Index Oswestry Score = 26% PT-OP-F Manual Assessment Start: 05/13/25 12:53 Freq: Status: Active Protocol: Document 05/13/25 13:04 ARCHITECTURAL DRAFTER (Rec: 05/13/25 18:29 ARCHITECTURAL DRAFTER Laptop) Manual Assessments Soft Tissue Assessment Soft Tissue Mobility Decreased soft tissue mobility to B upper traps, Assessment levator scaps, rhomboids, and pecs with multiple trigger points PT-OP-K Range of Motion Start: 05/13/25 12:53 Freq: Status: Active Protocol: Document 05/13/25 13:04 ARCHITECTURAL DRAFTER (Rec: 05/13/25 13:55 ARCHITECTURAL DRAFTER Laptop) Cervical Spine Range of Motion Cervical Spine Active Testing Position Sitting Rotation Left 70 Rotation Right 66 Lateral Flexion Left 41 Lateral Flexion 55 Right ROM Limitations Soft Tissue Tightness Shoulder Goniometric Range of Motion Shoulder L Testing Position Sitting Flexion 164 Abduction 150 R Testing Position Sitting Flexion 146 Abduction 155 PT-OP-M Strength Start: 05/13/25 12:53 Freq: Status: Active Protocol: Document 05/13/25 13:04 ARCHITECTURAL DRAFTER (Rec: 05/13/25 13:55 ARCHITECTURAL DRAFTER Laptop) Shoulder Strength Shoulder Manual Muscle Testing L Flexion 4+ Good+ Extension 5 Normal Abduction (C5) 4+ Good+ External Rotation 4 Good Internal Rotation 4 Good R Flexion 4 Good Extension 5 Normal Abduction (C5) 4+ Good+ External Rotation 4+ Good+ Internal Rotation 5 Normal PT-OP-Q Treatments Start: 05/13/25 12:53 Freq: Status: Active Protocol: Document 05/13/25 13:04 ARCHITECTURAL DRAFTER (Rec: 05/13/25 18:29 ARCHITECTURAL DRAFTER Laptop) Therapeutic Exercises Sitting Exercises Scap Retract Side bilateral Reps/Minutes x10 Comments Added to HEP with HO Lev Scap stretch Side bilateral Reps/Minutes 30s Comments Added to HEP with HO UT stretch Side bilateral Reps/Minutes 30s each Comments Added to HEP with HO PT-OP-T Assessment and Plan Start: 05/13/25 12:53 Freq: Status: Active Protocol: Document 05/13/25 13:04 ARCHITECTURAL DRAFTER (Rec: 05/13/25 18:33 ARCHITECTURAL DRAFTER Laptop) Physical Therapy Assessment Rehab Potential Rehabilitation Good Potential Evaluation Complexity Number of Personal 1-2 Factors/ Comorbidities Number of Body 3 Systems Impaired Clinical Stable Presentation at Evaluation Impairments Impairments Activity Tolerance,Functional Activities,Functional Mobility,Pain,Posture,ROM,Soft Tissue Mobility,Strength Goals 3 Impairment BUE strength Impairment On eval: L shoulder IR and ER 4/5, R shoulder flex 4/5 Short Term Goal (STG Pt will improve L shoulder IR/ER to at least 4+/5 ) tested in neutral position and R shoulder flex to at least 4+/5 in order to improve function. STG Duration 6 weeks 2 Impairment Cervical AROM Impairment On eval: L lateral flex 41 degrees, R 55 degrees Short Term Goal (STG Pt will improve L lateral flexion actively to at least ) 48 degrees to improve function. STG Duration 6 weeks Residential Goal (LTG) Pt will improve L lateral flexion actively to at least 55 degrees to improve function. 1 Impairment UE nerve tension Residential Goal (LTG) Pt will demonstrate improved BUE nerve tension by reporting waking up in morning 7 days in a row without tingling to BUEs/hands. LTG Duration 12 weeks Assessment Summary Assessment Pt presents with chest, shoulder, thoracic, and neck pain L>R and tinging B UEs with findings in poor forward flexed posture with forward head posture, decreased strength in B scapular muscles, decreased cervical AROM with R rotation and L lateral flexion, decreased B shoulder strength with L IR/ER and R flexion, decreased soft tissue mobility with significant trigger points to B upper traps, levator scaps, rhomboids, and pecs, lack of HEP, and probable though not yet tested positive nerve tension tests. Pt will highly benefit from skilled PT intervention to address these deficits and progress towards goals of improved function. Physical Therapy Plan Frequency and Duration Frequency of 1-2x/wk Treatment Duration of 12 treatment (weeks) Plan of Care Start 05/13/25 Date Plan of Care End 08/05/25 Date Therapeutic Interventions Therapeutic Home Exercise Program,Joint Mobilizations,Manual Interventions Therapy,Neuromuscular Re-education,Soft Tissue Mobilization,Taping,Therapeutic Activities,Therapeutic Exercises Modalities Cold Pack/Ice Massage,Electric Stimulation,Hot Packs, Iontophoresis,Ultrasound Next Visit Focus/Plan Next Note Type Treatment Note Next Visit Plan postural education and strengthening/stretching, STM to B neck/shoulder/scapulas, B shoulder strengthening and HEP
--- NOTE | 2025-05-13 17:00 | PT.OPPOC ---
Physical, Occupational & Speech Therapy At [facility] Current Diagnoses Dorsalgia, unspecified (05/13/25) Visit Care Team Role Provider Type Aimee Alaniz MD Attending Provider Physician Family Provider Primary Care Provider Referring Provider Specialty: Family Practice Address: [address] [place] [address], [id number] Email: [email or web address] Plan Of Care PT-OP-B Current Condition Start: 05/13/25 12:53 Freq: Status: Active Protocol: Document 05/13/25 13:04 SHERIFF'S DETECTIVE (Rec: 05/13/25 13:55 SHERIFF'S DETECTIVE Laptop) Current Condition History of Current Condition Onset Date ~2 years ago Current Complaints L upper back/neck pain History of Current Pt reports pain to L chest, neck, L shoulder, and upper Condition back pain which started about 2 years ago and is unsure of cause. Pt reports pain starts in the front of her chest on L side and moves to back and neck and was really bad but has gradually improved but still remains low but constant. Pt reports flare ups that spread to whole back and makes movement very difficult. Sitting for too long hurts, standing for too long hurts. Has tingling in B hands, especially when waking up from sleeping. 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 Pt has seen chiropractor and massage therapy for back pain and has trouble affording massage therapy and did not like the chiropractor d/t increased pain. Treatment Goals Patient/Caregiver No more tingling hands, not being in pain all the time. Goals PT-OP-T Assessment and Plan Start: 05/13/25 12:53 Freq: Status: Active Protocol: Document 05/13/25 13:04 SHERIFF'S DETECTIVE (Rec: 05/13/25 18:33 SHERIFF'S DETECTIVE Laptop) Physical Therapy Assessment Rehab Potential Rehabilitation Good Potential Evaluation Complexity Number of Personal 1-2 Factors/ Comorbidities Number of Body 3 Systems Impaired Clinical Stable Presentation at Evaluation Impairments Impairments Activity Tolerance,Functional Activities,Functional Mobility,Pain,Posture,ROM,Soft Tissue Mobility,Strength Goals 3 Impairment BUE strength Impairment On eval: L shoulder IR and ER 4/5, R shoulder flex 4/5 Short Term Goal (STG Pt will improve L shoulder IR/ER to at least 4+/5 ) tested in neutral position and R shoulder flex to at least 4+/5 in order to improve function. STG Duration 6 weeks 2 Impairment Cervical AROM Impairment On eval: L lateral flex 41 degrees, R 55 degrees Short Term Goal (STG Pt will improve L lateral flexion actively to at least ) 48 degrees to improve function. STG Duration 6 weeks Sonar Watchstander Goal (LTG) Pt will improve L lateral flexion actively to at least 55 degrees to improve function. 1 Impairment UE nerve tension Penitentiary Goal (LTG) Pt will demonstrate improved BUE nerve tension by reporting waking up in morning 7 days in a row without tingling to BUEs/hands. LTG Duration 12 weeks Assessment Summary Assessment Pt presents with chest, shoulder, thoracic, and neck pain L>R and tinging B UEs with findings in poor forward flexed posture with forward head posture, decreased strength in B scapular muscles, decreased cervical AROM with R rotation and L lateral flexion, decreased B shoulder strength with L IR/ER and R flexion, decreased soft tissue mobility with significant trigger points to B upper traps, levator scaps, rhomboids, and pecs, lack of HEP, and probable though not yet tested positive nerve tension tests. Pt will highly benefit from skilled PT intervention to address these deficits and progress towards goals of improved function. Physical Therapy Plan Frequency and Duration Frequency of 1-2x/wk Treatment Duration of 12 treatment (weeks) Plan of Care Start 05/13/25 Date Plan of Care End 08/05/25 Date Therapeutic Interventions Therapeutic Home Exercise Program,Joint Mobilizations,Manual Interventions Therapy,Neuromuscular Re-education,Soft Tissue Mobilization,Taping,Therapeutic Activities,Therapeutic Exercises Modalities Cold Pack/Ice Massage,Electric Stimulation,Hot Packs, Iontophoresis,Ultrasound Next Visit Focus/Plan Next Note Type Treatment Note Next Visit Plan postural education and strengthening/stretching, STM to B neck/shoulder/scapulas, B shoulder strengthening and HEP Plan of Care Dates Plan of Care Start Date 05/13/25 Plan of Care End Date 08/05/25 Electronically Signed by: Melinda Morillo, PT 05/14/25 0204 If you are in agreement with this Plan of Care, please return a signed and dated copy. I have reviewed this Plan of Care and certify that the skilled therapy services above are required to meet the patient?s needs. Physician Signature Date Printed Name and Credentials Clinical Instructor Signature Printed Name and Credentials
--- NOTE | 2025-06-01 16:10 | PT.OTN ---
Current Diagnoses Dorsalgia, unspecified (06/01/25) Physical Therapy Treatment Note PT-OP-A Visit Information Start: 05/13/25 12:53 Freq: Status: Active Protocol: Document 06/01/25 15:23 TREATING PLANT OPERATOR (Rec: 06/01/25 16:10 TREATING PLANT OPERATOR Laptop) Out-Patient Physical Therapy Visit Information Visit Information Visit Type Progress Note Visit Start Time 15:20 Visit Stop Time 16:05 Visit Number 2 Number of MUCK MINER BLASTING Visits 0 Evaluation Information Evaluation Date 05/13/25 PT-OP-B Current Condition Start: 05/13/25 12:53 Freq: Status: Active Protocol: Document 05/13/25 13:04 TREATING PLANT OPERATOR (Rec: 05/13/25 13:55 TREATING PLANT OPERATOR Laptop) Current Condition History of Current Condition Onset Date ~2 years ago Current Complaints L upper back/neck pain History of Current Pt reports pain to L chest, neck, L shoulder, and upper Condition back pain which started about 2 years ago and is unsure of cause. Pt reports pain starts in the front of her chest on L side and moves to back and neck and was really bad but has gradually improved but still remains low but constant. Pt reports flare ups that spread to whole back and makes movement very difficult. Sitting for too long hurts, standing for too long hurts. Has tingling in B hands, especially when waking up from sleeping. 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 Pt has seen chiropractor and massage therapy for back pain and has trouble affording massage therapy and did not like the chiropractor d/t increased pain. Treatment Goals Patient/Caregiver No more tingling hands, not being in pain all the time. Goals PT-OP-C Subjective Start: 05/13/25 12:53 Freq: Status: Active Protocol: Document 06/01/25 15:23 TREATING PLANT OPERATOR (Rec: 06/01/25 16:10 TREATING PLANT OPERATOR Laptop) OP-PT Subjective Patient Comments Patient Comments Pt reports 0 pain at rest in B shoulders but has recently had increased pain to R hip area while trying to sleep. Has worked on HEP a little bit but not as much as she knows she should. PT-OP-F Manual Assessment Start: 05/13/25 12:53 Freq: Status: Active Protocol: Document 05/13/25 13:04 TREATING PLANT OPERATOR (Rec: 05/13/25 18:29 TREATING PLANT OPERATOR Laptop) Manual Assessments Soft Tissue Assessment Soft Tissue Mobility Decreased soft tissue mobility to B upper traps, Assessment levator scaps, rhomboids, and pecs with multiple trigger points PT-OP-K Range of Motion Start: 05/13/25 12:53 Freq: Status: Active Protocol: Document 05/13/25 13:04 TREATING PLANT OPERATOR (Rec: 05/13/25 13:55 TREATING PLANT OPERATOR Laptop) Cervical Spine Range of Motion Cervical Spine Active Testing Position Sitting Rotation Left 70 Rotation Right 66 Lateral Flexion Left 41 Lateral Flexion 55 Right ROM Limitations Soft Tissue Tightness Shoulder Goniometric Range of Motion Shoulder L Testing Position Sitting Flexion 164 Abduction 150 R Testing Position Sitting Flexion 146 Abduction 155 PT-OP-M Strength Start: 05/13/25 12:53 Freq: Status: Active Protocol: Document 05/13/25 13:04 TREATING PLANT OPERATOR (Rec: 05/13/25 13:55 TREATING PLANT OPERATOR Laptop) Shoulder Strength Shoulder Manual Muscle Testing L Flexion 4+ Good+ Extension 5 Normal Abduction (C5) 4+ Good+ External Rotation 4 Good Internal Rotation 4 Good R Flexion 4 Good Extension 5 Normal Abduction (C5) 4+ Good+ External Rotation 4+ Good+ Internal Rotation 5 Normal PT-OP-Q Treatments Start: 05/13/25 12:53 Freq: Status: Active Protocol: Document 06/01/25 15:23 TREATING PLANT OPERATOR (Rec: 06/01/25 16:10 TREATING PLANT OPERATOR Laptop) Therapeutic Exercises Supine Exercises Chin tucks Reps/Minutes 10x2 Comments Added to HEP w/ HO PPT Supine Exercise Name 1. PPT 2. PPT hold 5s Equipment Used towel for cueing Reps/Minutes x10 Scap protract Side bilateral Resistance 3# dumbbell Reps/Minutes 10x2 Comments VC to maintain scap depression Scap dep Side bilateral Reps/Minutes 10x2 Piriformis stretch Supine Exercise Name figure 4 Side right Reps/Minutes 1 min x2 Comments Added to HEP w/ HO Sidelying Exercises Clamshells Side bilateral Resistance gravity Reps/Minutes 10x2 Comments Added to HEP w/ HO PT-OP-T Assessment and Plan Start: 05/13/25 12:53 Freq: Status: Active Protocol: Document 06/01/25 15:23 TREATING PLANT OPERATOR (Rec: 06/01/25 16:10 TREATING PLANT OPERATOR Laptop) Physical Therapy Assessment Impairments Impairments Activity Tolerance,Functional Activities,Functional Mobility,Pain,Posture,ROM,Soft Tissue Mobility,Strength Goals 3 Impairment BUE strength Impairment On eval: L shoulder IR and ER 4/5, R shoulder flex 4/5 Short Term Goal (STG Pt will improve L shoulder IR/ER to at least 4+/5 ) tested in neutral position and R shoulder flex to at least 4+/5 in order to improve function. STG Duration 6 weeks 2 Impairment Cervical AROM Impairment On eval: L lateral flex 41 degrees, R 55 degrees Short Term Goal (STG Pt will improve L lateral flexion actively to at least ) 48 degrees to improve function. STG Duration 6 weeks Jail Goal (LTG) Pt will improve L lateral flexion actively to at least 55 degrees to improve function. 1 Impairment UE nerve tension Jail Goal (LTG) Pt will demonstrate improved BUE nerve tension by reporting waking up in morning 7 days in a row without tingling to BUEs/hands. LTG Duration 12 weeks Assessment Summary Assessment Focus this session was on strengthening core stabilizing muscles of neck, abd, and hips for overall improved stability and posture. Pt tolerated all well without pain. HEP HO given Physical Therapy Plan Frequency and Duration Frequency of 1-2x/wk Treatment Duration of 12 treatment (weeks) Plan of Care Start 05/13/25 Date Plan of Care End 08/05/25 Date Therapeutic Interventions Therapeutic Home Exercise Program,Joint Mobilizations,Manual Interventions Therapy,Neuromuscular Re-education,Soft Tissue Mobilization,Taping,Therapeutic Activities,Therapeutic Exercises Modalities Cold Pack/Ice Massage,Electric Stimulation,Hot Packs, Iontophoresis,Ultrasound Next Visit Focus/Plan Next Note Type Treatment Note Next Visit Plan postural education and strengthening/stretching, STM to B neck/shoulder/scapulas, B shoulder strengthening and HEP
--- NOTE | 2025-06-03 10:40 | PT.OTN ---
Current Diagnoses Dorsalgia, unspecified (06/03/25) Physical Therapy Treatment Note PT-OP-A Visit Information Start: 05/13/25 12:53 Freq: Status: Active Protocol: Document 06/03/25 09:45 AB (Rec: 06/03/25 10:40 AB [id number]) Out-Patient Physical Therapy Visit Information Visit Information Visit Type Treatment Note Visit Start Time 09:49 Visit Stop Time 10:35 Visit Number 3 Number of ELECTRONIC PREPRESS OPERATOR Visits 1 PT-OP-B Current Condition Start: 05/13/25 12:53 Freq: Status: Active Protocol: Document 05/13/25 13:04 POST DOCTORAL FELLOW (Rec: 05/13/25 13:55 POST DOCTORAL FELLOW Laptop) Current Condition History of Current Condition Onset Date ~2 years ago Current Complaints L upper back/neck pain History of Current Pt reports pain to L chest, neck, L shoulder, and upper Condition back pain which started about 2 years ago and is unsure of cause. Pt reports pain starts in the front of her chest on L side and moves to back and neck and was really bad but has gradually improved but still remains low but constant. Pt reports flare ups that spread to whole back and makes movement very difficult. Sitting for too long hurts, standing for too long hurts. Has tingling in B hands, especially when waking up from sleeping. 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 Pt has seen chiropractor and massage therapy for back pain and has trouble affording massage therapy and did not like the chiropractor d/t increased pain. Treatment Goals Patient/Caregiver No more tingling hands, not being in pain all the time. Goals PT-OP-C Subjective Start: 05/13/25 12:53 Freq: Status: Active Protocol: Document 06/03/25 09:45 AB (Rec: 06/03/25 10:40 AB [id number]) OP-PT Subjective Patient Comments Patient Comments Patient reports she feels worse, hip is really bothering, knee is bothering, went on a trip did a lot of hiking. Patient rates neck pain 2/10 shoulder pain 2 /10 start of session. Patient reports she was holding the garage door and feel forward into door with L arm, attributes inc pain to this. PT. Lio Washington in to assess patient, and cleared patient to continue with this PT session. PT-OP-F Manual Assessment Start: 05/13/25 12:53 Freq: Status: Active Protocol: Document 05/13/25 13:04 POST DOCTORAL FELLOW (Rec: 05/13/25 18:29 POST DOCTORAL FELLOW Laptop) Manual Assessments Soft Tissue Assessment Soft Tissue Mobility Decreased soft tissue mobility to B upper traps, Assessment levator scaps, rhomboids, and pecs with multiple trigger points PT-OP-K Range of Motion Start: 05/13/25 12:53 Freq: Status: Active Protocol: Document 05/13/25 13:04 POST DOCTORAL FELLOW (Rec: 05/13/25 13:55 POST DOCTORAL FELLOW Laptop) Cervical Spine Range of Motion Cervical Spine Active Testing Position Sitting Rotation Left 70 Rotation Right 66 Lateral Flexion Left 41 Lateral Flexion 55 Right ROM Limitations Soft Tissue Tightness Shoulder Goniometric Range of Motion Shoulder L Testing Position Sitting Flexion 164 Abduction 150 R Testing Position Sitting Flexion 146 Abduction 155 PT-OP-M Strength Start: 05/13/25 12:53 Freq: Status: Active Protocol: Document 05/13/25 13:04 POST DOCTORAL FELLOW (Rec: 05/13/25 13:55 POST DOCTORAL FELLOW Laptop) Shoulder Strength Shoulder Manual Muscle Testing L Flexion 4+ Good+ Extension 5 Normal Abduction (C5) 4+ Good+ External Rotation 4 Good Internal Rotation 4 Good R Flexion 4 Good Extension 5 Normal Abduction (C5) 4+ Good+ External Rotation 4+ Good+ Internal Rotation 5 Normal PT-OP-Q Treatments Start: 05/13/25 12:53 Freq: Status: Active Protocol: Document 06/03/25 09:45 AB (Rec: 06/03/25 10:40 AB [id number]) Therapeutic Exercises Sitting Exercises UT stretch Side bilateral Reps/Minutes 60s each Comments Added to HEP with HO Standing Exercises quadruped CS rotation. Side bilateral Reps/Minutes X 10 Comments verbal cues and tac cues for positioning. VC to perform pain free slowly pec stretch Side bilateral Reps/Minutes 60 seconds each UE Comments VC for UE, LE positioning, monitored for loc of sensation of stretch Therapeutic Activity Therapeutic Activity posture check back to wall Comments VC head, shoulders, knees and foot position, then to fix posture 10% and hold position when stepping away from wall. Manual Therapy Treatment Consent Patient gave verbal Yes consent for manual treatment Soft Tissue Mobilization pec Mobilization Type Cross-Friction,Rolling Intensity/Depth Moderate Body Position Hooklying CS Body Location scalenes at lateral clavicle,, UT, levator scap, paraspinals Mobilization Type Cross-Friction,Rolling,Strumming Intensity/Depth Moderate Body Position Sitting PT-OP-T Assessment and Plan Start: 05/13/25 12:53 Freq: Status: Active Protocol: Document 06/03/25 09:45 AB (Rec: 06/03/25 10:40 AB [id number]) Physical Therapy Assessment Goals 3 Impairment BUE strength Impairment On eval: L shoulder IR and ER 4/5, R shoulder flex 4/5 Short Term Goal (STG Pt will improve L shoulder IR/ER to at least 4+/5 ) tested in neutral position and R shoulder flex to at least 4+/5 in order to improve function. STG Duration 6 weeks 2 Impairment Cervical AROM Impairment On eval: L lateral flex 41 degrees, R 55 degrees Short Term Goal (STG Pt will improve L lateral flexion actively to at least ) 48 degrees to improve function. STG Duration 6 weeks [facility] Goal (LTG) Pt will improve L lateral flexion actively to at least 55 degrees to improve function. 1 Impairment UE nerve tension Counter Help Goal (LTG) Pt will demonstrate improved BUE nerve tension by reporting waking up in morning 7 days in a row without tingling to BUEs/hands. LTG Duration 12 weeks Assessment Summary Assessment Visible increase in CS sidebend L and R, but continues to be limited. Jo-Ann reports pain is the same end of session. Physical Therapy Plan Frequency and Duration Frequency of 1-2x/wk Treatment Duration of 12 treatment (weeks) Plan of Care Start 05/13/25 Date Plan of Care End 08/05/25 Date Next Visit Focus/Plan Next Note Type Treatment Note Next Visit Plan postural education and strengthening/stretching, STM to B neck/shoulder/scapulas, B shoulder strengthening and HEP
--- NOTE | 2025-06-16 13:35 | PT-OP ANOTE ---
Attempted call and left a voicemail to inquire about reason for cancellation of last appointment and request pt to call PT front office to schedule more.
--- NOTE | 2025-07-28 15:56 | PT.OPDS ---
Pt last seen 06/03 and cancelled her next scheduled session. Multiple attempts made to call pt with voice messages left encouraging pt to call to schedule more appointments without response of follow up. PT will D/C PT. Pt to obtain new doctor's referral in order to return to PT. Current Diagnoses Dorsalgia, unspecified (06/03/25) Visit Care Team Role Provider Type Aimee Alaniz MD Attending Provider Physician Family Provider Primary Care Provider Referring Provider [place] [facility] Address: [address] [place] [address], [facility], [address] Email: [email or web address] Visit Number Visit Number 3 Discharge Summary PT-OP-A Visit Information Start: 05/13/25 12:53 Freq: Status: Active Protocol: Document 06/03/25 09:45 AB (Rec: 06/03/25 10:40 AB [id number]) Out-Patient Physical Therapy Visit Information Visit Information Visit Type Treatment Note Visit Start Time 09:49 Visit Stop Time 10:35 Visit Number 3 Number of INSTRUCTOR PHYSICAL EDUCATION Visits 1 PT-OP-B Current Condition Start: 05/13/25 12:53 Freq: Status: Active Protocol: Document 05/13/25 13:04 MANAGER TARGET (Rec: 05/13/25 13:55 MANAGER TARGET Laptop) Current Condition History of Current Condition Onset Date ~2 years ago Current Complaints L upper back/neck pain History of Current Pt reports pain to L chest, neck, L shoulder, and upper Condition back pain which started about 2 years ago and is unsure of cause. Pt reports pain starts in the front of her chest on L side and moves to back and neck and was really bad but has gradually improved but still remains low but constant. Pt reports flare ups that spread to whole back and makes movement very difficult. Sitting for too long hurts, standing for too long hurts. Has tingling in B hands, especially when waking up from sleeping. 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 Pt has seen chiropractor and massage therapy for back pain and has trouble affording massage therapy and did not like the chiropractor d/t increased pain. Treatment Goals Patient/Caregiver No more tingling hands, not being in pain all the time. Goals PT-OP-C Subjective Start: 05/13/25 12:53 Freq: Status: Active Protocol: Document 06/03/25 09:45 AB (Rec: 06/03/25 10:40 AB [id number]) OP-PT Subjective Patient Comments Patient Comments Patient reports she feels worse, hip is really bothering, knee is bothering, went on a trip did a lot of hiking. Patient rates neck pain 2/10 shoulder pain 2 /10 start of session. Patient reports she was holding the garage door and feel forward into door with L arm, attributes inc pain to this. PT. Lio Washington in to assess patient, and cleared patient to continue with this PT session. PT-OP-F Manual Assessment Start: 05/13/25 12:53 Freq: Status: Active Protocol: Document 05/13/25 13:04 MANAGER TARGET (Rec: 05/13/25 18:29 MANAGER TARGET Laptop) Manual Assessments Soft Tissue Assessment Soft Tissue Mobility Decreased soft tissue mobility to B upper traps, Assessment levator scaps, rhomboids, and pecs with multiple trigger points PT-OP-K Range of Motion Start: 05/13/25 12:53 Freq: Status: Active Protocol: Document 05/13/25 13:04 MANAGER TARGET (Rec: 05/13/25 13:55 MANAGER TARGET Laptop) Cervical Spine Range of Motion Cervical Spine Active Testing Position Sitting Rotation Left 70 Rotation Right 66 Lateral Flexion Left 41 Lateral Flexion 55 Right ROM Limitations Soft Tissue Tightness Shoulder Goniometric Range of Motion Shoulder L Testing Position Sitting Flexion 164 Abduction 150 R Testing Position Sitting Flexion 146 Abduction 155 PT-OP-M Strength Start: 05/13/25 12:53 Freq: Status: Active Protocol: Document 05/13/25 13:04 MANAGER TARGET (Rec: 05/13/25 13:55 MANAGER TARGET Laptop) Shoulder Strength Shoulder Manual Muscle Testing L Flexion 4+ Good+ Extension 5 Normal Abduction (C5) 4+ Good+ External Rotation 4 Good Internal Rotation 4 Good R Flexion 4 Good Extension 5 Normal Abduction (C5) 4+ Good+ External Rotation 4+ Good+ Internal Rotation 5 Normal PT-OP-T Assessment and Plan Start: 05/13/25 12:53 Freq: Status: Active Protocol: Document 06/03/25 09:45 AB (Rec: 06/03/25 10:40 AB [id number]) Physical Therapy Assessment Goals 3 Impairment BUE strength Impairment On eval: L shoulder IR and ER 4/5, R shoulder flex 4/5 Short Term Goal (STG Pt will improve L shoulder IR/ER to at least 4+/5 ) tested in neutral position and R shoulder flex to at least 4+/5 in order to improve function. STG Duration 6 weeks 2 Impairment Cervical AROM Impairment On eval: L lateral flex 41 degrees, R 55 degrees Short Term Goal (STG Pt will improve L lateral flexion actively to at least ) 48 degrees to improve function. STG Duration 6 weeks Residential Goal (LTG) Pt will improve L lateral flexion actively to at least 55 degrees to improve function. 1 Impairment UE nerve tension Guest Relations Coordinator Goal (LTG) Pt will demonstrate improved BUE nerve tension by reporting waking up in morning 7 days in a row without tingling to BUEs/hands. LTG Duration 12 weeks Assessment Summary Assessment Visible increase in CS sidebend L and R, but continues to be limited. Jo-Ann reports pain is the same end of session. Physical Therapy Plan Frequency and Duration Frequency of 1-2x/wk Treatment Duration of 12 treatment (weeks) Plan of Care Start 05/13/25 Date Plan of Care End 08/05/25 Date Next Visit Focus/Plan Next Note Type Treatment Note Next Visit Plan postural education and strengthening/stretching, STM to B neck/shoulder/scapulas, B shoulder strengthening and HEP
== END 2025-08-02 08:57 | disposition home or self-care (01) ==
LOC: PHYS 09:45
PROVIDERS: Family Provider Family Medicine; PCP Family Medicine; Referring Provider Family Medicine; Visit Provider Family Medicine
DX: M54.9 Dorsalgia, unspecified (principal)
CPT/HCPCS: 97110; 97140; 97162; 97530